=== PATIENT | female | born 1950 | race Two or more races ===

== ENCOUNTER 2024-03-24 17:57 | Emergency (ER) | payer MEDICAID, OTHER ==
[~2024-03-24] VITALS: Ht 152.4 cm; Wt 60.3 kg
[~2024-03-24 17:57] MED LIST: LEVO500T91 PO; PROM1SOL4 PO
[2024-03-24 18:42] VITALS: BP 133/57; PULSE 72; RESP 20; TEMP 98.3; O2SAT 100
--- NOTE | 2024-03-24 18:50 | ED.PDOC ---
Eye-HPI HPI Comments THIS IS A 73-YEAR-OLD FEMALE CHIEF COMPLAINT COLD-LIKE SYMPTOMS X4 DAYS. COMPLAINING OF THICK YELLOW PHLEGM WITH COUGH, NASAL CONGESTION, AND SUBJECTIVE FEVERS. REPORTS NO RECENT ILL CONTACTS OR TRAVEL. SHE DENIES CHEST PAIN, DIFFICULTY BREATHING, OR SHORTNESS OF BREATH NOTES NO NAUSEA VOMITING OR DIARRHEA Chief Complaint: Flu like Time Seen by MD: 18:33 Reviewed Notes: Nurses Notes, Medications, Allergies Allergies: Coded Allergies: NO KNOWN ALLERGIES (Unverified , 05/01/23) Home Meds Active Scripts Methylprednisolone (Medrol Dosepak) 4 Mg Mc, 4 MG PO UD for 6 Days, #21 TAB UAD Prov:JEANETTE LAMBERTP 03/24/24 Azithromycin (Azithromycin) 250 Mg Tab, 250 MG PO DAILY MDD 500 for 5 Days, #6 TAB 0 Refills 2 TABLETS ORALLY ON DAY ONE, THEN 1 TABLET ORALLY DAILY FOR 4 DAYS Prov:JEANETTE LAMBERT 03/24/24 Promethazine-Dm (Promethazine Dm 6.25-15 mg/5Ml) 1 Elizabeth Elizabeth, 5 ML PO TID, #160 ML Prov:ZORAIDA GAMBLE 05/01/23 Levofloxacin Hemihydrate (LEVAQUIN 500 MG) 500 Mg Tab, 1 TAB PO DAILY, #10 TAB Prov:ZORAIDA GAMBLE 05/01/23 Information Source: Patient Mode of Arrival: Ambulatory Past Medical History PAST MEDICAL HISTORY: HTN, Thyroid Surgical History: Denies all surgeries FIRST AID OFFICER History: Denies all FIRST AID OFFICER Hx Family History Family History: Reviewed,noncontributory to illness Social History Smoker: Non-Smoker Alcohol: Denies ETOH Use Drugs: Denies Drug Use Lives In: Home Constitutional: reports: fever; denies: chills, diaphoresis, fatigue, malaise, sweats, weakness, others EENTM: reports: nasal discharge; denies: blurred vision, double vision, ear bleeding, ear discharge, ear drainage, ear pain, ear ringing, eye pain, eye redness, hearing loss, mouth pain, mouth swelling, nose bleeding, nose congestion, nose pain, photophobia, tearing, throat pain, throat swelling, voice changes, others Respiratory: reports: cough; denies: hemoptysis, orthopnea, SOB at rest, shortness of breath, SOB with excertion, stridor, wheezing, others Cardiovascular: denies: chest pain, dizzy spells, diaphoresis, Dyspnea on exertion, edema, irregular heart beat, left arm pain, lightheadedness, palpitations, PND, syncope, others Gastrointestinal: denies: abdomen distended, abdominal pain, blood streaked bowels, constipated, diarrhea, dysphagia, difficulty swallowing, hematemesis, m darek, nausea, poor appetite, poor fluid intake, rectal bleeding, rectal pain, vomiting, others Genitourinary: denies: abnormal vagina bleeding, burning, dyspareunia, dysuria, flank pain, frequency, hematuria, incontinence, pain, , vagina discharge, urgency, others Neurological: denies: dizziness, fainting, headache, left sided numbness, left sided weakness, numbness, paresthesia, pre-existing deficit, right sided numbness, right sided weakness, seizure, speech problems, tingling, tremors, weakness, others Musculoskeletal: denies: back pain, gout, joint pain, joint swelling, muscle pain, muscle stiffness, neck pain, others Integumetry: denies: bruises, change in color, change in hair/nails, dryness, laceration, lesions, lumps, rash, wounds, others Allergic/Immunocompromised: denies: Difficulty Healing, Frequent Infections, Hives, Itching, others Hematologic/Lymphatic: denies: anemia, blood clots, easy bleeding, easy bruising, swollen glands, others Endocrine: denies: excessive hunger, excessive sweating, excessive thirst, excessive urination, flushing, intolerance to cold, intolerance to heat, unexpla ined weight gain, unexplained weight loss, others Psychiatric: denies: anxiety, bipolar disorder, depression, hopeless, panic disorder, schizophrenia, sleepless, suicidal, others Physical Exam General Appearance: No Apparent Distress, Normal HEENT: Normal ENT Inspection, Pharynx Normal, TMs Normal Neck: Full Range of Motion, Non-Tender Respiratory: Lungs Clear, No Respiratory Distress, Normal Breath Sounds Cardiovascular: No Edema, No JVD, No Murmur, No Gallop, Normal Peripheral Pulses, Regular Rate/Rhythm Breast Exam: Deferred Gastrointestinal: No Organomegaly, Non Tender, No Pulsatile Mass, Normal Bowel Sounds, Soft Genitalia: Deferred Pelvic: Deferred Rectal: Deferred Extremities: Normal capillary refill, Normal inspection, Normal range of motion, Non-tender, No pedal edema Musculoskeletal : Apperance: Normal Neurologic: Alert, chemical checker II-XII nml as Tested, No Motor Deficits, Normal Affect, Normal Mood, No Sensory Deficits Cerebellar Function: Normal Reflexes: Normal Skin: Dry, Normal Color, Warm Lymphatic: No Adenopathy Was a procedure done? Was a procedure done?: No EENT DIFF Eye: N/A Ear: Sinusitis Sore Throat: URI X-Ray, Labs, Meds, VS Vital Signs Date Time Temp Pulse Resp B/P (MAP) Pulse Ox O2 Delivery O2 Flow Rate FiO2 03/24/24 18:42 72 20 100 Room Air 03/24/24 18:42 98.3 72 20 133/57 (82) 100 98.3 03/24/24 18:27 98.3 72 20 133/57 (82) 100 Lab Test 03/24/24 18:51 03/24/24 18:24 Range/Units Influenza Type A Antigen Negative Negative Influenza Type B Antigen Negative Negative SARS-CoV-2 Antigen (Rapid) Negative NEGATIVE POC Glucose 104 70-106 mg/dl X-Ray, Labs, Meds, VS Comment INFLUENZA A AND B AND COVID-19 NEGATIVE. CHEST X-RAY SHOWS NO CARDIOPULMONARY ACUTE FINDINGS. SCRIBE AND HOLD AZITHROMYCIN AND MEDROL DOSEPAK. ADVISED PATIENT'S IF SYMPTOMS PERSIST FEVERS START TREATMENT PLAN.. ADVISED TO REST INCREASE P.O. FLUIDS WITH ELECTROLYTES FOLLOW UP WITH YOUR PCP IN 2-3 DAYS NECESSARY ER RETURN PRECAUTIONS GIVEN PATIENT INDICATES UNDERSTANDING AGREES WITH DISCHARGE PLAN OF CARE. Time of 1ST Reevaluation: 20:08 Reevaluation 1ST: Improved Patient Education/Counseling: Diagnosis, Treatment, Prognosis, Need For Follow Up Family Education/Counseling: No Family Present Departure 1 Departure Time of Disposition: 20:08 Impression: Primary Impression: Upper respiratory infection Qualified Codes: J06.9 - Acute upper respiratory infection, unspecified Disposition: HOME / SELF CARE / HOMELESS Condition: Stable e-Prescriptions Methylprednisolone (Medrol Dosepak) 4 Mg Mc 4 MG PO UD for 6 Days, #21 TAB UAD Prov: JEANETTE LAMBERT 03/24/24 Azithromycin (Azithromycin) 250 Mg Tab 250 MG PO DAILY MDD 500 for 5 Days, #6 TAB 0 Refills 2 TABLETS ORALLY ON DAY ONE, THEN 1 TABLET ORALLY DAILY FOR 4 DAYS Prov: JEANETTE LAMBERT 03/24/24 Discharged With: Self Critical Care Note Critical Care Time?: No Stability Stability form required: No JEANETTE LAMBERT Mar 24, 2024 18:50
--- NOTE | 2024-03-24 19:38 | DVH ---
XY CHEST TWO VIEWS ROUTINE CLINICAL HISTORY: DIZZINESS/SOB COMPARISON: XY CHEST TWO VIEWS ROUTINE on DOS: 05/01/23 TECHNIQUE: Frontal and lateral view of the chest was obtained FINDINGS: Lines and Tubes: None Lungs: No focal consolidation. Pleura: No effusion. No pneumothorax. Cardiomediastinal contours: Unremarkable Bones: No acute osseous abnormality. IMPRESSION: 1. No acute cardiopulmonary disease.
[2024-03-24 19:56] LABS: COVID19 ANTIGEN SOFIA FIA NEGATIVE (NEGATIVE); Rapid Influenza A Negative (Negative); Rapid Influenza B Negative (Negative)
[2024-03-24] MEDS ORDERED: AZIT-43 PO (20:15)
[2024-03-24] MEDS ORDERED: METH4PAK PO (20:15)
== END 2024-03-24 20:32 | disposition home or self-care (01) ==
LOC: ER 17:57
DX: J06.9 Acute upper respiratory infection, unspecified (principal); I10 Essential (primary) hypertension; E07.9 Disorder of thyroid, unspecified; R05.9 Cough, unspecified; R09.81 Nasal congestion; R50.9 Fever, unspecified; Z20.822 Contact with and (suspected) exposure to COVID-19
CPT/HCPCS: 36415; 71046; 82962; 87426; 87804

== ENCOUNTER 2024-08-14 12:32 | Emergency (ER) | payer MEDICAID ==
[~2024-08-14] VITALS: Ht 152.4 cm; Wt 57.7 kg
[~2024-08-14 12:32] MED LIST changes: +AZIT-43 PO
[2024-08-14 12:42] VITALS: TEMP 98.6
--- NOTE | 2024-08-14 13:17 | DVH ---
CHEST RADIOGRAPH Indication: cough, sob, cp, dizzy Technique: Single frontal view of the chest was obtained COMPARISON: None FINDINGS: Lines and Tubes: None Lungs: Clear Pleura: No effusion. No pneumothorax. Cardiomediastinal contours: Unremarkable Bones: Unremarkable IMPRESSION: No acute disease.
[2024-08-14 13:23] LABS: Basophils # (auto) 0.1 10 ^3/uL (0-0.2); Basophils % (auto) 1.1 % (0.0-2.0); Eosinophils # (auto) 0.1 10 ^3/uL (0-0.8); Eosinophils % (auto) 1.3 % (0.0-7.0); Hemoglobin 12.7 g/dL (12.2-16.2); Lymphocytes # (auto) 2.6 10 ^3/uL (0.4-5.4); Lymphocytes % (auto) 44.1 % (10.0-50.0); Mean Corpuscular Hemoglobin 31.9 pg (28.0-32.0); Mean Corpuscular Hgb Conc. 35.4 g/dL (32.0-36.0); Mean Corpuscular Volume 90.1 fL (80.0-100.0); Monocytes # (auto) 0.4 10 ^3/uL (0-1.3); Monocytes % (auto) 6.5 % (0.0-12.0); Neutrophils # (auto) 2.8 10 ^3/uL (1.6-8.6); Platelet Count (auto) 201 10^3/uL (140-450); Red Cell Distribution Width 15.9 % (11.8-14.3); White Blood Cell 5.9 10^3/uL (4.4-10.8)
--- NOTE | 2024-08-14 13:32 | ED.PDOC ---
SOB-HPI HPI Comments HPI: 73y f who presents to the ED for chief complaint of shortness of breath. - pt states she has been having shortness of breath for the past 2 days - pt states she has been having associated chest pain, dizziness and cough with phlegm - pt states the chest pain is abdominal pain radiating up to chest, burning in nature, with no associated exacerbating or relieving factors - pt states she was dx with gastritis and was prescribed PPI meds and states she was taking her medications and she finished her course 3 days prior - pt otherwise denies any recent sick contacts -pt is ax0x4 and denies any other symptoms at this time -pt has history of HTN and states she took her HTN meds today - pt in the ED, has noted BP 97/46 with all other vitals in normal range - Past Medical history: HTN, DM, thyroid, vertigo Past Surgical history: denies Medications: nifedpine, levothyroxine, meclizine Allergies: nkda Social History: denies ETOH, denies tobacco use, denies drug use HPI: Poor Historian. REVIEW OF SYSTEMS: CONSTITUTIONAL: Denies acute: fever, diaphoresis, chills, generalized weakness. HEAD: Denies acute: headache, photophobia Eyes: Denies acute: Double vision, vision loss, eye pain, eye discharge. EARS: Denies acute: tinnitus, hearing loss, ear discharge, ear pain, THROAT: Denies acute: sore throat, swelling, difficulty swallowing , pain with swallowing, change in voice. NECK: Denies acute: neck pain, neck swelling, stiff neck. HEART: Denies acute : palpitations, LUNGS: Denies acute: wheezing, hemoptysis ABDOMEN: Denies acute: abdominal pain, Nausea, Vomiting, diarrhea, melena , hematemesis, hematochezia SKIN: Denies acute: rash, redness, lesions, itchiness. EXTREMITIES: Denies acute: calf pain, numbness, tingling, weakness, denies pain in extremity. Denies acute: Low back pain. Neuro: Denies acute: focal neurological deficit, motor or sensory focal neurological deficit, tremors, seizure like activity, confusion, dizziness, change in mental status, loss of bowel or bladder function, cauda equina like symptoms. : Denies acute: dysuria, hematuria, flank pain, increase in urinary frequency. PSYCH: Denies acute: hallucination, suicidal ideation, homicidal ideation. FEMALE: Denies acute: abnormal vaginal bleeding, foul odor, unusual discharge. PHYSICAL EXAM: General: ----no----acute distress, awake and alert. Head: normocephalic, atraumatic. Neck: supple, trachea is midline, no swelling. Throat: Normal phonation. Eyes:, no erythema, no purulent discharge, no proptosis, no icterus. Heart: regular rate, regular rhythm, no significant murmur appreciated. Lungs: no apparent respiratory distress, Able to speak in full sentences. No wheezing, no rhonchi, no crackles. No stridors Clear to auscultation bilaterally. Abdomen: non tender to palpation, non distended, soft, no guarding, no rebound, + bowel sounds. Neuro: Awake, Alert, oriented to name, self, situation, follows commands GCS=15. Speech is normal. Skin: no petechia, no purpura, no cyanosis, non-pale, not jaundice. Lower extremities: --no - Pitting edema no deformity, no focal swelling, no calf TTP. Makes eye contact. moves all four extremities. Face: no apparent facial droop. Ambulating in the ED independently. ED COURSE: DISCLAIMER: This medical document was created using an electronic medical record system with voice recognition software and computerized dictation system. Although this document has been carefully reviewed, there might still be some phonetic and typographical errors. Occasional wrong-word or "sound-alike" substitutions may have occurred due to the inherent limitations of voice recognition software. These areas are purely typographical due to imperfections of the software programs and do not reflect any compromise in the patient's medical care. Please read the chart carefully and recognize, using context, where these substitutions have occurred. Chief Complaint: General Weakness Time Seen by MD: 13:31 Primary Care Provider: KODAK Reviewed notes: Medications, Allergies Information Source: Patient Mode of Arrival: Ambulatory Past Medical History PAST MEDICAL HISTORY: HTN, Thyroid Surgical History: Denies all surgeries MARINE ENGINE DRIVER History: Denies all MARINE ENGINE DRIVER Hx Family History Family History: Reviewed,noncontributory to illness Social History Smoker: Non-Smoker Alcohol: Denies ETOH Use Drugs: Denies Drug Use Lives In: Home Was a procedure done? Was a procedure done?: No Differential Dx Differential Diagnosis: Other (DDx include ACS, unstable angina, anxiety, PE, pneumothroax, neoplasm, cardiac ischemia, COPD, asthma, CHF, pleural effusion, tobacco abuse, pneumonia, hypoxia, hypercapnia, anemia., infection/sepsis., pulmonary edema. Asthma, Cardiac tamponade, infection.) X-Ray, Labs, Meds, VS Vital Signs Date Time Temp Pulse Resp B/P (MAP) Pulse Ox O2 Delivery O2 Flow Rate FiO2 08/14/24 17:43 68 18 98 Room Air 08/14/24 17:43 70 18 145/62 (89) 98 08/14/24 12:50 74 08/14/24 12:42 98.6 81 17 97/46 (63) 96 98.6 Lab Test 08/14/24 13:55 08/14/24 13:30 08/14/24 12:56 08/14/24 12:48 Range/Units Troponin I High Sensitivity 12 13 </=34 ng/L Influenza Type A Antigen Negative Negative Influenza Type B Antigen Negative Negative SARS-CoV-2 Antigen (Rapid) Negative NEGATIVE White Blood Count 5.9 4.4-10.8 10^3/uL Red Blood Count 4.00 4.0-5.20 10^6/uL Hemoglobin 12.7 12.2-16.2 g/dL Hematocrit 36.0 36.0-46.0 % Mean Corpuscular Volume 90.1 80.0-100.0 fL Mean Corpuscular Hemoglobin 31.9 28.0-32.0 pg Mean Corpuscular Hemoglobin Concent 35.4 32.0-36.0 g/dL Red Cell Distribution Width 15.9 H 11.8-14.3 % Platelet Count 201 140-450 10^3/uL Mean Platelet Volume 8.2 6.9-10.8 fL Neutrophils (%) (Auto) 47.0 37.0-80.0 % Lymphocytes (%) (Auto) 44.1 10.0-50.0 % Monocytes (%) (Auto) 6.5 0.0-12.0 % Eosinophils (%) (Auto) 1.3 0.0-7.0 % Basophils (%) (Auto) 1.1 0.0-2.0 % Neutrophils # (Auto) 2.8 1.6-8.6 10 ^3/uL Lymphocytes # (Auto) 2.6 0.4-5.4 10 ^3/uL Monocytes # (Auto) 0.4 0-1.3 10 ^3/uL Eosinophils # (Auto) 0.1 0-0.8 10 ^3/uL Basophils # (Auto) 0.1 0-0.2 10 ^3/uL Nucleated Red Blood Cells 0.0 % Sodium Level 145 136-145 mmol/L Potassium Level 3.8 3.5-5.1 mmol/L Chloride Level 109 H 98-107 mmol/L Carbon Dioxide Level 24 20-31 mmol/L Anion Gap 12 5-15 Blood Urea Nitrogen 20 9-23 mg/dL Creatinine 1.47 H 0.550-1.02 mg/dL Glomerular Filtration Rate Calc 38 >90 mL/min BUN/Creatinine Ratio 13.6 10.0-20.0 Serum Glucose 131 H 74-106 mg/dL Lactic Acid Level 1.5 0.4-2.0 mmol/L Calcium Level 10.0 8.7-10.4 mg/dL Total Bilirubin 1.1 H 0.2-1.0 mg/dL Aspartate Amino Transferase (AST) 55 H <34 U/L Alanine Aminotransferase (ALT) 30 7-40 U/L Alkaline Phosphatase 236 H 46-116 U/L B-Type Natriuretic Peptide 205.33 0-100 pg/mL Total Protein 7.4 5.7-8.2 g/dL Albumin 4.2 3.2-4.8 g/dL Urine Color Yellow Yellow Urine Clarity Clear Clear Urine pH 5.5 5.0-9.0 Urine Specific [place] 1.023 1.001-1.035 Urine Protein Trace H Negative Urine Ketones Negative Negative Urine Blood Trace H Negative /uL Urine Nitrite Negative Negative Urine Bilirubin Negative Negative Urine Urobilinogen 2 H Negative mg/dL Urine Leukocyte Esterase 1+ Negative /uL Urine RBC 2 0 - 4 /hpf Urine Microscopic WBC 5 0-5 /HPF Urine Squamous Epithelial Cells Few <5 /hpf Urine Bacteria None seen None Seen /hpf Urine Hyaline Casts Few 0 - 2 /lpf Urine Mucus Few None Seen Urine Glucose Normal Normal mg/dL [facility] [address] [facility] [id number] Ph: [phone] DIAGNOSTIC IMAGING Diagnostic Imaging Report : [id number] Signed PATIENT: HAROLDO DEMARCO ACCT: [id number] UNIT: [id number] : 1950 LOC: ER ROOM / BED: / AGE / SEX: 73 / F ADM STATUS: REG ER SERVICE [id number] ORDERING PHYSICIAN: ALEXANDRO BUI DO PROCEDURE(s): CXRP - CHEST PORTABLE REASON: cough, sob, cp, dizzy ORDER NUMBER(s): [id number], ACCESSION NUMBER(s): [id number] CHEST RADIOGRAPH Indication: cough, sob, cp, dizzy Technique: Single frontal view of the chest was obtained COMPARISON: None FINDINGS: Lines and Tubes: None Lungs: Clear Pleura: No effusion. No pneumothorax. Cardiomediastinal contours: Unremarkable Bones: Unremarkable IMPRESSION: No acute disease. ATED BY: KAREEM BLAKE MD DICTATED DATE/TIME: 08/14/241314 SIGNED BY: KAREEM BLAKE MD SIGNED DATE/TIME: 08/14/241314 CC: Time of 1ST Reevaluation: 00:00 Reevaluation 1ST: Patient Education/Counseling: Diagnosis, Treatment Family Education/Counseling: No Family Present Comments Patient presented with the above HPI.----respiratory complaints--workup was initiated. patient was found with the above mentioned diagnosis. the following medications were ordered: please refer to order lists of meds and tests obtained by myself Dr. Bui. Patient ED course and VS have been stabilized. Patient has been reassessed in the ED and remained in a stable condition. Pertinent incidental findings were discussed with the patient and/or family. Patient/family voices understanding and is agreeable with plan. Patient has been observed in the ED adequate length of time to insure improvement/stability. Escalation of care considered: Consideration of escalation to observation or admission Patient was DISCHARGED home in a stable condition. All the reports of any imaging studies that were ordered by myself were reviewed by myself. Departure 1 Departure Time of Disposition: 16:58 Impression: Primary Impression: Acute bronchitis Disposition: 01 HOME / SELF CARE / HOMELESS Condition: Stable Additional Instructions: Additional instructions: You MUST follow-up with your primary care/family doctor in 1 to 2 days. If you are unable to see your primary care/family doctor, please return to our emergency room for re-assessment and re-evaluation in 1 to 2 days. Return to the emergency room here in our facility or to the nearest ER [facility] if your symptoms change or worsen. CONSULTATIONS: you MUST Follow-up for consultation as soon as possible with: cardiology and pulmonology in 1-2 days. Please call for appointment. You MUST call the consultants office yourself to make an appointment. You may need to arrange that through your insurance and/or your primary/family doctor. If you are unable to see the retail client solutions consultant in 1 to 2 days, you must return to our emergency room (or any other ER of your choice) for re-assessment and re- evaluation. Adequate fluid hydration. Below is a copy of your radiological report for follow up: e-Prescriptions Azithromycin (Azithromycin) 500 Mg Tab 1 TAB PO DAILY for 6 Days, #6 TAB Prov: ALEXANDRO BUI DO 08/14/24 Discharged With: Self Critical Care Note Critical Care Time?: No Heart Score Heart Score: Heart Score Response (Comments) Value History Slightly Suspicious 0 EKG Normal 0 Age >65 2 Risk Factors 1 or 2 risk factors 1 Troponin Normal limit 0 Total 3 I personally scribed for ALEXANDRO BUI DO ([email or web address]) on 08/14/24 at 13:32. Electronically submitted by Alva Rojas ([email or web address]). I personally scribed for ALEXANDRO BUI DO ([email or web address]) on 08/14/24 at 16:14. Electronically submitted by Alva Rojas ([email or web address]). I personally scribed for ALEXANDRO BUI DO ([email or web address]) on 08/14/24 at 19:19. Electronically submitted by Alva Rojas ([email or web address]). ALEXANDRO BUI DO Aug 14, 2024 13:32
[2024-08-14 13:33] LABS: Alanine Aminotransferase 30 U/L (7-40); Albumin 4.2 g/dL (3.2-4.8); Alkaline Phosphatase 236 U/L (46-116); Anion Gap 12 (5-15); Aspartate Aminotransferase 55 U/L (<34); BUN/Creatinine Ratio 13.6 (10.0-20.0); Bilirubin, Total 1.1 mg/dL (0.2-1.0); Blood Urea Nitrogen 20 mg/dL (9-23); Carbon Dioxide 24 mmol/L (20-31); Chloride 109 mmol/L (98-107); Glucose 131 mg/dL (74-106); Potassium 3.8 mmol/L (3.5-5.1); Sodium 145 mmol/L (136-145); Total Protein 7.4 g/dL (5.7-8.2)
[2024-08-14 15:24] LABS: Rapid Influenza A Negative (Negative); Rapid Influenza B Negative (Negative)
[2024-08-14 15:25] LABS: COVID19 ANTIGEN SOFIA FIA NEGATIVE (NEGATIVE)
[2024-08-14 16:14] LABS: Urine Bacteria None Seen /hpf (None Seen)
[2024-08-14 16:26] LABS: Urine Blood TRACE /uL (Negative); Urine Clarity Clear (Clear); Urine Color Yellow (Yellow); Urine Hyaline Cast FEW /lpf (0 - 2); Urine Mucus FEW (None Seen); Urine Protein, UAD TRACE (Negative); Urine Specific Gravity 1.023 (1.001-1.035); Urine Squamous Epithelial Cell FEW /hpf (<5); Urine Urobilinogen 2 mg/dL (Negative); Urine WBC 5 /HPF (0-5); Urine pH 5.5 (5.0-9.0)
[2024-08-14] MEDS ORDERED: AZIT500T66 PO (16:59)
[2024-08-14 17:43] VITALS: BP 145/62; PULSE 68; RESP 18; O2SAT 98
--- NOTE | 2024-08-15 06:48 | ECG ---
[facility] Test Date: 2024-08-14 Test Time: 12:50:56 Pat Name: HAROLDO DEMARCO Department: ER Room: Gender: F Retail Sales Representative: SO : 1950 Requested By: ALEXANDRO BUI Order Number: [id number] Reading MD: Blaine Wallace Measurements Intervals Porter Rate: 74 P: 13 NE: 122 QRS: 72 QRSD: 80 T: -5 QT: 347 QTc: 385 Interpretive Statements Sinus rhythm Borderline T abnormalities, inferior leads Electronically Signed On 08-15-2024 17:40:10 PDT by Blaine Wallace Please click the below link to view image of tracing.
== END 2024-08-14 17:46 | disposition home or self-care (01) ==
LOC: ER 12:32
DX: J20.9 Acute bronchitis, unspecified (principal); I10 Essential (primary) hypertension; E11.9 Type 2 diabetes mellitus without complications; Z20.822 Contact with and (suspected) exposure to COVID-19
CPT/HCPCS: 36415; 71045; 80053; 81001; 83605; 83880; 84484; 85025; 87426; 87804; 93005

== ENCOUNTER 2024-08-23 12:38 | Inpatient (IN) | payer MEDICAID ==
[~2024-08-23] VITALS: Ht 157.5 cm; Wt 63.4 kg
[2024-08-23] MEDS: SODIUM CHLORIDE 0.9% 1,000 ML IV SCH (01:19)
[~2024-08-23 12:38] MED LIST changes: +AZIT500T66 PO
--- NOTE | 2024-08-23 13:24 | ED.PDOC ---
HPI (NEURO) HPI Comments 73 y/o F, with PMHx of HTN presents to the ED for CC of generalized weakness. Patient states, she has been experiencing generalized weakness with associated symptoms of dizziness, nasal congestion and chest pain x 1week. Patient reports, dizziness has caused her to be unable to ambulate. Patient denies sore-throat, fever, chills, body-aches, dysuria, back pain, or flank pain. No other symptoms or modifying factors present at this time. Chief Complaint: General Weakness Time Seen by MD: 13:19 Primary Care Provider: KODAK Tolentino Notes: Nurses Notes, Medications, Allergies Information Source: Patient, Relative (Child) Mode of Arrival: Ambulatory Severity: Moderate Dizziness/Weakness Severity: Unable to do activities Headache Severity: None Timing: Weeks Duration: Since onset Prehospital treatment: None Weakness Location: Generalized Onset: At rest Circumstances: Spontaneous Symptoms: Weakness Modifying factors: Nothing Associated Signs and Symptoms: None Past Medical History PAST MEDICAL HISTORY: HTN, Thyroid Surgical History: Denies all surgeries COMMUNITY RELATIONS DIRECTOR History: Denies all COMMUNITY RELATIONS DIRECTOR Hx Family History Family History: Reviewed,noncontributory to illness Social History Smoker: Non-Smoker Alcohol: Denies ETOH Use Drugs: Denies Drug Use Lives In: Home Constitutional: reports: weakness; denies: chills, diaphoresis, fatigue, fever, malaise, sweats, others EENTM: reports: nose congestion; denies: blurred vision, double vision, ear bleeding, ear discharge, ear drainage, ear pain, ear ringing, eye pain, eye redness, hearing loss, mouth pain, mouth swelling, nasal discharge, nose bleeding, nose pain, photophobia, tearing, throat pain, throat swelling, voice changes, others Respiratory: reports: shortness of breath; denies: cough, hemoptysis, orthopnea, SOB at rest, SOB with excertion, stridor, wheezing, others Cardiovascular: reports: chest pain; denies: dizzy spells, diaphoresis, Dyspnea on exertion, edema, irregular heart beat, left arm pain, lightheadedness, palpitations, PND, syncope, others Gastrointestinal: denies: abdomen distended, abdominal pain, blood streaked bowels, constipated, diarrhea, dysphagia, difficulty swallowing, hematemesis, melena, nausea, poor appetite, poor fluid intake, rectal bleeding, rectal pain, vomiting, others Genitourinary: denies: abnormal vagina bleeding, burning, dyspareunia, dysuria, flank pain, frequency, hematuria, incontinence, pain, , vagina discharge, urgency, others Neurological: reports: dizziness; denies: fainting, headache, left sided numbness, left sided weakness, numbness, paresthesia, pre-existing deficit, right sided numbness, right sided weakness, seizure, speech problems, tingling, tremors, weakness, others Musculoskeletal: denies: back pain, gout, joint pain, joint swelling, muscle pain, muscle stiffness, neck pain, others Integumetry: denies: bruises, change in color, change in hair/nails, dryness, laceration, lesions, lumps, rash, wounds, others Allergic/Immunocompromised: denies: Difficulty Healing, Frequent Infections, Hives, Itching, others Hematologic/Lymphatic: denies: anemia, blood clots, easy bleeding, easy bruising, swollen glands, others Endocrine: denies: excessive hunger, excessive sweating, excessive thirst, excessive urination, flushing, intolerance to cold, intolerance to heat, unexplained weight gain, unexplained weight loss, others Psychiatric: denies: anxiety, bipolar disorder, depression, hopeless, panic disorder, schizophrenia, sleepless, suicidal, others All Other Systems: Reviewed and Negative Physical Exam General Appearance: Moderate Distress HEENT: Normal ENT Inspection, Pharynx Normal, TMs Normal Neck: Full Range of Motion, Non-Tender, Normal, Normal Inspection Respiratory: Chest Non-Tender, Lungs Clear, No Accessory Muscle Use, No Respiratory Distress, Normal Breath Sounds Cardiovascular: No Edema, No JVD, No Murmur, No Gallop, Normal Peripheral Pulses, Regular Rate/Rhythm Breast Exam: Deferred Gastrointestinal: No Organomegaly, Non Tender, No Pulsatile Mass, Normal Bowel Sounds, Soft Genitalia: Deferred Pelvic: Deferred Rectal: Deferred Extremities: No calf tenderness, No pedal edema Musculoskeletal : Apperance: Normal Neurologic: Alert, No Motor Deficits, No Sensory Deficits Cerebellar Function: NOT DONE Reflexes: NOT DONE Skin: Normal Color Peripheral Pulses: 3+ Radial (R), 3+ Radial (L) Lymphatic: No Adenopathy Was a procedure done? Was a procedure done?: No Differential Diagnosis (SZ) Seizure: Psychogenic Seizure, Anticonvulsant Withdrawl, CVA/TIA General Weakness: Dehydration, Electrolyte imbalance, Vertigo: central, Vert igo: peripheral X-Ray, Labs, Meds, VS Vital Signs Date Time Temp Pulse Resp B/P (MAP) Pulse Ox O2 Delivery O2 Flow Rate FiO2 08/23/24 14:51 72 18 98 Room Air 08/23/24 14:51 97.9 72 18 126/51 (76) 98 97.9 08/23/24 13:01 98.8 73 16 97/41 (59) 97 98.8 08/23/24 12:59 74 Lab Test 08/23/24 16:47 08/23/24 13:36 Range/Units Lactic Acid Level 1.4 0.4-2.0 mmol/L White Blood Count 6.1 4.4-10.8 10^3/uL Red Blood Count 4.05 4.0-5.20 10^6/uL Hemoglobin 13.0 12.2-16.2 g/dL Hematocrit 36.7 36.0-46.0 % Mean Corpuscular Volume 90.6 80.0-100.0 fL Mean Corpuscular Hemoglobin 32.0 28.0-32.0 pg Mean Corpuscular Hemoglobin Concent 35.3 32.0-36.0 g/dL Red Cell Distribution Width 16.2 H 11.8-14.3 % Platelet Count 177 140-450 10^3/uL Mean Platelet Volume 8.1 6.9-10.8 fL Neutrophils (%) (Auto) 61.1 37.0-80.0 % Lymphocytes (%) (Auto) 31.1 10.0-50.0 % Monocytes (%) (Auto) 5.9 0.0-12.0 % Eosinophils (%) (Auto) 0.8 0.0-7.0 % Basophils (%) (Auto) 1.1 0.0-2.0 % Neutrophils # (Auto) 3.7 1.6-8.6 10 ^3/uL Lymphocytes # (Auto) 1.9 0.4-5.4 10 ^3/uL Monocytes # (Auto) 0.4 0-1.3 10 ^3/uL Eosinophils # (Auto) 0 0-0.8 10 ^3/uL Basophils # (Auto) 0.1 0-0.2 10 ^3/uL Nucleated Red Blood Cells 0.1 % Sodium Level 142 136-145 mmol/L Potassium Level 3.7 3.5-5.1 mmol/L Chloride Level 105 98-107 mmol/L Carbon Dioxide Level 25 20-31 mmol/L Anion Gap 12 5-15 Blood Urea Nitrogen 16 9-23 mg/dL Creatinine 1.17 H 0.550-1.02 mg/dL Glomerular Filtration Rate Calc 50 >90 mL/min BUN/Creatinine Ratio 13.7 10.0-20.0 Serum Glucose 95 74-106 mg/dL Calcium Level 10.2 8.7-10.4 mg/dL Troponin I High Sensitivity 12 </=34 ng/L [facility] [id number] [place] [address] Ph: [phone] DIAGNOSTIC IMAGING Diagnostic Imaging Report : [id number] Signed PATIENT: HAROLDO DEMARCO ACCT: [id number] UNIT: [id number] : 1950 LOC: ER ROOM / BED: / AGE / SEX: 73 / F ADM STATUS: REG ER SERVICE 1320 ORDERING PHYSICIAN: ARETHA PÉREZ MD PROCEDURE(s): CXRP - CHEST PORTABLE REASON: sob ORDER NUMBER(s): [id number], ACCESSION NUMBER(s): [id number] CHEST RADIOGRAPH Indication: sob Technique: Single frontal view of the chest was obtained Comparison: None FINDINGS: The cardiac silhouette is unremarkable. The lungs demonstrate bilateral patchy airspace opacities. The pulmonary vasculature is prominent. Left pleural calcifications. Small bilateral pleural effusions. There is no pneumothorax. IMPRESSION: As above ATED BY: LUBA WEISS MD DICTATED DATE/TIME: 08/23/241511 SIGNED BY: LUBA WEISS MD SIGNED DATE/TIME: 08/23/24 151 CC: Patient alert pain Complaining of dizziness. She does have multiple complaints. Vitals stable. Answering questions. Blood pressure slightly low. She is afraid of falling if she stands up. Difficulty ambulating. Establish intravenous access. Was given fluids. EKG reviewed does not show any acute changes. Explained to family that she will be admitted for further workup. Continue to monitor. Chest x-ray reviewed does show pneumonia. Was given Rocephin. Was given azithromycin. Time of 1ST Reevaluation: 17:41 Reevaluation 1ST: Unchanged Patient Education/Counseling: Diagnosis, Treatment Family Education/Counseling: Diagnosis, Treatment Departure 1 Departure Time of Disposition: 14:02 Impression: Primary Impression: Hypotension Qualified Codes: I95.9 - Hypotension, unspecified Additional Impressions: Autonomic disorder Pneumonia Qualified Codes: J18.9 - Pneumonia, unspecified organism Disposition: ADMITTED INPATIENT Admit to: Med Surg Condition: Guarded Critical Care Note Critical Care Time?: Yes (90 min-critical care time only) Critical care comment: Blood pressure low continue fluids Stability Stability form required: No Heart Score Heart Score: Heart Score Response (Comments) Value History Slightly Suspicious 0 EKG Normal 0 Age >65 2 Risk Factors >3 or Hx ASHD 2 Troponin Normal limit 0 Total 4 I personally scribed for ARETHA PÉREZ MD ([email or web address]) on 08/23/24 at 13:24. Electronically submitted by Cheryl Boucher ([email or web address]). I personally scribed for ARETHA PÉREZ MD ([email or web address]) on 08/23/24 at 15:17. Electronically submitted by Cheryl Boucher ([email or web address]). ARETHA PÉREZ MD Aug 23, 2024 13:24
--- NOTE | 2024-08-23 13:41 | ECG ---
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
[2024-08-23 13:52] LABS: Basophils # (auto) 0.1 10 ^3/uL (0-0.2); Basophils % (auto) 1.1 % (0.0-2.0); Eosinophils # (auto) 0 10 ^3/uL (0-0.8); Eosinophils % (auto) 0.8 % (0.0-7.0); Hematocrit 36.7 % (36.0-46.0); Lymphocytes # (auto) 1.9 10 ^3/uL (0.4-5.4); Lymphocytes % (auto) 31.1 % (10.0-50.0); Mean Corpuscular Hgb Conc. 35.3 g/dL (32.0-36.0); Mean Corpuscular Volume 90.6 fL (80.0-100.0); Monocytes # (auto) 0.4 10 ^3/uL (0-1.3); Monocytes % (auto) 5.9 % (0.0-12.0); Neutrophils # (auto) 3.7 10 ^3/uL (1.6-8.6); Neutrophils % (auto) 61.1 % (37.0-80.0); Nucleated Red Blood Cells % 0.1 %; Platelet Count (auto) 177 10^3/uL (140-450); Red Blood Cells 4.05 10^6/uL (4.0-5.20); Red Cell Distribution Width 16.2 % (11.8-14.3); White Blood Cell 6.1 10^3/uL (4.4-10.8)
[2024-08-23 13:57] LABS: Chloride 105 mmol/L (98-107); Potassium 3.7 mmol/L (3.5-5.1); Sodium 142 mmol/L (136-145)
[2024-08-23 13:58] LABS: Anion Gap 12 (5-15); Carbon Dioxide 25 mmol/L (20-31)
[2024-08-23 13:59] LABS: Calcium 10.2 mg/dL (8.7-10.4)
[2024-08-23 14:03] LABS: Glucose 95 mg/dL (74-106)
[2024-08-23 14:04] LABS: BUN/Creatinine Ratio 13.7 (10.0-20.0); Blood Urea Nitrogen 16 mg/dL (9-23)
--- NOTE | 2024-08-23 15:14 | DVH ---
CHEST RADIOGRAPH Indication: sob Technique: Single frontal view of the chest was obtained Comparison: None FINDINGS: The cardiac silhouette is unremarkable. The lungs demonstrate bilateral patchy airspace opacities. Th e pulmonary vasculature is prominent. Left pleural calcifications. Small bilateral pleural effusions . There is no pneumothorax. IMPRESSION: As above
[2024-08-23] MEDS: SODIUM CHLORIDE 0.9% 1,000 ML IV ONE ×2 (16:45)
[2024-08-23] MEDS ORDERED: SODIUM CHLORIDE 0.9% 1,000 ML IV ONE (16:45)
[2024-08-23] MEDS: AZITHROMYCIN 500MG/ 250ML 250 ML IV ONE (19:46)
[2024-08-23] MEDS: cefTRIAXone 1GM/50ML D5W 50 ML IV ONE (19:47)
[2024-08-23 20:33] LABS: Urine Bacteria None Seen /hpf (None Seen)
[2024-08-23 20:45] LABS: Urine Blood Negative /uL (Negative); Urine Budding Yeast OCCASIONAL /hpf (None Seen); Urine Clarity Clear (Clear); Urine Color Light-Yellow (Yellow); Urine Protein, UAD Negative (Negative); Urine Specific Gravity 1.011 (1.001-1.035); Urine Squamous Epithelial Cell FEW /hpf (<5); Urine Urobilinogen Normal (Negative); Urine WBC 4 /HPF (0-5); Urine pH 7.5 (5.0-9.0)
[2024-08-23] MEDS ORDERED: MORPHINE SULFATE INJ 2 MG/ml SYRG IV PRN ×2 (21:45)
[2024-08-23] MEDS ORDERED: DOCUSATE SOD 100 MG CAP PO PRN (21:45)
[2024-08-23] MEDS ORDERED: ONDANSETRON HCL 4 MG/2 ML VIAL IV PRN (21:45)
[2024-08-23] MEDS ORDERED: NITROGLYCERIN 0.4 MG SL TAB SL PRN (21:45)
--- NOTE | 2024-08-23 22:56 | DVH ---
EXAM: CT HEAD WITHOUT CONTRAST INDICATION: Rule out stroke. TECHNIQUE: CT of the head without intravenous contrast. Radiation Dose Information: CT Dose: CTDI volume is 51.41 mGy. Dose-length product is 910.49 mGy*cm The dose indicators for CT are the volume Computed Tomography (CT) Dose Index (CTDIvol) and the Dose Length Product (DLP), and are measured in units of mGy and mGy-cm, respectively. These indicators are not patient dose, but values generated from the CT scanner acquisition factors. The report includes radiation exposure data for exposures received during this examination. COMPARISON: None FINDINGS: There is no evidence of acute intracranial hemorrhage, extra-axial collection, mass effect, midline s hift, herniation or hydrocephalus. The ventricles, sulci and cisterns are age appropriate. The brito-white differentiation is intact. Patchy periventricular and subcortical white matter hypoattenuation is nonspecific but may be related to small vessel ischemic disease. The visualized paranasal sinuses and mastoid air cells are clear. The surrounding soft tissues and osseous structures are unremarkable. IMPRESSION: 1. No acute intracranial abnormality.
[2024-08-23 23:24] LABS: Albumin 4.2 g/dL (3.2-4.8); Total Protein 7.6 g/dL (5.7-8.2)
[2024-08-23 23:25] LABS: Bilirubin, Direct 0.4 mg/dL (<0.3)
--- NOTE | 2024-08-23 23:59 | DVHHPRES ---
History of Present Illness Resident Creating Document: CAL KAPLAN RESIDENT History of Present Illness Ms. Lopez, a 73-year-old female with exclusively Tristanian-speaking capability with a history of hypertension, pulmonary nodules, and hypothyroidism presents to the ED with one week of generalized weakness, dizziness, nasal congestion, shortness of breath, and chest pain. The dizziness has been severe enough to impair her ability to ambulate. She denies fever, chills, sore throat, body aches, dysuria, back or flank pain, and has no history of seizures or recent medication changes. She is a non-smoker, denies alcohol and drug use, and lives at home. There are no modifying factors, and symptoms began spontaneously at rest. Differential considerations include dehydration, electrolyte imbalance, and central or peripheral vertigo. the patient was accompanied by the daughter at bedside and came with wheelchair bound as she feels she is at the verge of falling. Past Medical History hypertension, pulmonary nodules, and hypothyroidism Past Surgical History: None Family History: Other (Not contributory to the admission.) Smoke: No ALCOHOL: none Drugs: None Lives: with Family Domestic Violence: Neg Review of Systems Constitutional: Yes: Weakness, Malaise; No: Fever, Chills, Sweats, Other Eyes: No: Pain, Vision change, Conjunctivae inflammation, Eyelid inflammation, Other, Redness ENT: No: Ear pain, Ear discharge, Nose pain, Nose discharge, Nose congestion, Mouth pain, Mouth swelling, Throat pain, Throat swelling, Other Respiratory: No: Cough, Dry, Shortness of breath, SOB with excertion, Wheezing, Hemoptysis, Pleuritic Pain, Sputum, Wheezing, Other Cardiovascular: Chest Pain; No: Palpitations, Orthopnea, Paroxysmal Noc. Dyspnea, Edema, Lt Headedness, Other Gastrointestinal: Nausea, Abdominal Pain; No: Vomiting, Diarrhea, Constipation, Melena, Hematochezia, Other Genitourinary: No Dysuria, No Frequency, No Incontinence, No Hematuria, No Retention, No Other Musculoskeletal: No: other, neck pain, shoulder pain, arm pain, back pain, hand pain, leg pain, foot pain Skin: No: Rash, Lesions, Jaundice, Bruising, Other Neurological: Weakness; No: Numbness, Incoordination, Change in speech, Confusion, Seizures, Other Allergies: Coded Allergies: NO KNOWN ALLERGIES (Unverified , 05/01/23) Medications Current Medications Medications Dose Ordered Sig/Payton Route Start Time Stop Time Status Last Admin Dose Admin Sodium Chloride 1,000 ml @ 60 mls/hr [id number] IV 08/23/24 21:45 Ondansetron HCl 4 mg Q4HP PRN IV 08/23/24 21:45 Docusate Sodium 100 mg BIDPRN PRN PO 08/23/24 21:45 Acetaminophen 650 mg Q6HP PRN PO 08/23/24 21:45 Morphine Sulfate 2 mg Q4HPRN PRN IV 08/23/24 21:45 Nitroglycerin 0.4 mg Q5MINP PRN SL 08/23/24 21:45 Morphine Sulfate 2 mg Q30M PRN IV 08/23/24 21:45 Pantoprazole Sodium 40 mg DAILY IV 08/24/24 10:00 Meclizine HCl 25 mg Q8HPRN PRN PO 08/23/24 22:15 Atorvastatin Calcium 40 mg HS PO 08/24/24 22:00 Levothyroxine Sodium 50 mcg QAM@0600 PO 08/24/24 06:00 Ceftriaxone Sodium 50 ml @ 100 mls/hr DAILY@09 IV 08/24/24 09:00 Exam Vital Signs Vital Signs Date Time Temp Pulse Resp B/P (MAP) Pulse Ox O2 Delivery O2 Flow Rate FiO2 08/23/24 23:49 98.3 66 16 174/70 (104) 97 98.3 08/23/24 14:51 Room Air General Appearance: Alert, Oriented X3, Cooperative, mild distress HEENT: Atraumatic, PERRLA, EOMI, Mucous membr. moist/pink Respiratory: Clear to auscultation, Normal air movement, Other (in RA) Cardiovascular: Regular rate, Normal S1, Normal S2, No murmurs Abdominal: Normal bowel sounds, Soft, No tenderness, No hepatospenomegaly, Other (suprapubic mild tenderness, no cva angle tenderness. ) Extremities: No clubbing, No cyanosis, No edema Skin: No rashes, No breakdown, No significant lesion Neuro: Normal speech, Strength at 5/5 X4 ext, Normal tone, Sensation intact, Cranial nerves 3-12 NL, Reflexes 2+, Other (gait deferred, in the fear of fall. ) Psych/Mental Status: Mental status NL, Mood NL Labs/Xrays Labs Test 08/23/24 23:39 08/23/24 22:30 08/23/24 16:47 08/23/24 13:36 Range/Units D-Dimer, Quantitative 1.19 H 0.0-0.49 mg/L FEU Total Bilirubin 1.0 0.2-1.0 mg/dL Direct Bilirubin 0.4 H <0.3 mg/dL Aspartate Amino Transferase (AST) 49 H <34 U/L Alanine Aminotransferase (ALT) 21 7-40 U/L Alkaline Phosphatase 202 H 46-116 U/L Total Protein 7.6 5.7-8.2 g/dL Albumin 4.2 3.2-4.8 g/dL Lactic Acid Level 1.4 0.4-2.0 mmol/L White Blood Count 6.1 4.4-10.8 10^3/uL Red Blood Count 4.05 4.0-5.20 10^6/uL Hemoglobin 13.0 12.2-16.2 g/dL Hematocrit 36.7 36.0-46.0 % Mean Corpuscular Volume 90.6 80.0-100.0 fL Mean Corpuscular Hemoglobin 32.0 28.0-32.0 pg Mean Corpuscular Hemoglobin Concent 35.3 32.0-36.0 g/dL Red Cell Distribution Width 16.2 H 11.8-14.3 % Platelet Count 177 140-450 10^3/uL Mean Platelet Volume 8.1 6.9-10.8 fL Neutrophils (%) (Auto) 61.1 37.0-80.0 % Lymphocytes (%) (Auto) 31.1 10.0-50.0 % Monocytes (%) (Auto) 5.9 0.0-12.0 % Eosinophils (%) (Auto) 0.8 0.0-7.0 % Basophils (%) (Auto) 1.1 0.0-2.0 % Neutrophils # (Auto) 3.7 1.6-8.6 10 ^3/uL Lymphocytes # (Auto) 1.9 0.4-5.4 10 ^3/uL Monocytes # (Auto) 0.4 0-1.3 10 ^3/uL Eosinophils # (Auto) 0 0-0.8 10 ^3/uL Basophils # (Auto) 0.1 0-0.2 10 ^3/uL Nucleated Red Blood Cells 0.1 % Sodium Level 142 136-145 mmol/L Potassium Level 3.7 3.5-5.1 mmol/L Chloride Level 105 98-107 mmol/L Carbon Dioxide Level 25 20-31 mmol/L Anion Gap 12 5-15 Blood Urea Nitrogen 16 9-23 mg/dL Creatinine 1.17 H 0.550-1.02 mg/dL Glomerular Filtration Rate Calc 50 >90 mL/min BUN/Creatinine Ratio 13.7 10.0-20.0 Serum Glucose 95 74-106 mg/dL Calcium Level 10.2 8.7-10.4 mg/dL B-Type Natriuretic Peptide 260.51 0-100 pg/mL Vitamin B12 Level 581 211-911 pg/mL Vitamin D 25-Hydroxy 31.5 30.0-100 ng/mL Thyroid Stimulating Hormone (TSH) 4.11 0.55-4.78 uIU/mL Test 08/23/24 08:00 Range/Units Urine Color Light-yellow Yellow Urine Clarity Clear Clear Urine pH 7.5 5.0-9.0 Urine Specific [place] 1.011 1.001-1.035 Urine Protein Negative Negative Urine Ketones Negative Negative Urine Blood Negative Negative /uL Urine Nitrite Negative Negative Urine Bilirubin Negative Negative Urine Urobilinogen Normal Negative mg/dL Urine Leukocyte Esterase 1+ Negative /uL Urine RBC 2 0 - 4 /hpf Urine Microscopic WBC 4 0-5 /HPF Urine Squamous Epithelial Cells Few <5 /hpf Urine Bacteria None seen None Seen /hpf Urine Yeast (Budding) Occasional None Seen /hpf Urine Glucose Normal Normal mg/dL Assessment/Plan Assessment/Plan #Recent fall at home x1: Fall precautions, physical examination does not reveal any focal neurological deficit, neurological examination unremarkable, CT head pending. Workup for B12 and TSH. #Abdominal pain: 11/08 radiating to upper chest: Workup to complete with abdominal /pelvis CT with lactate and lipase. Check full hepatic panel. Serial abdominal examination to be done. #Calcified pleural plaques, including corresponding to the finding on chest x- ray. This is compatible with asbestosis exposure noted in CT chest 05/01/2023 Further follow up needed for possible changes/ high-risk of lung cancer. #epigastric pain /chest pain rule out ACS: Serial troponin, EKG, echo to check BNP, we will admit the patient to the telemetry floor for close monitoring. Presumably hemodynamically stable. Atrial premature complex, Abnormal R-wave progression, early transition, Nonspecific repolarization abnormality, diffuse leads, Borderline ST elevation, lateral leads (noted in and EKG almost 10 hours ago)- We will do extensive workup and bedside echo. #Fifth left rib fracture: Noted in the chest x-ray, incentive spirometry, pain control, calcium and vitamin-D supplements. Avoid atelectasis. #Essential hypertension, not well controlled. during this hospital stay blood pressure went to 173/64. Home medications reveal nifedipine 30 mg ER, metoprolol succinate 25 mg #UTI: Leukocyte esterase positive, lactate negative, Hemodynamically stable, afebrile, breathing in comfortably in the room air. status post fluid IV, 1 L bolus NS, 150 cc/hour, #likely LAILA: Creatinine 1.17: Baseline not known avoid, gentle hydration, avoid nephrotoxic meds. #possible underlying CKD stage IIIB : serial monitoring to do. #mild normocytic anemia: Hemoglobin 13.0, RDW 16.2, rule out early GI blood loss, stool occult blood to check Outpatient close follow up with PCP and age- appropriate colonoscopy to follow up. #Likely pulmonary edema: No hypoxia, The lungs demonstrate bilateral patchy airspace opacities. The pulmonary vasculature is prominent. #possible community-acquired pneumonia: Blood culture sputum culture will be sent, check for viral panel, status post IV azithromycin ceftriaxone At ER. #Left pleural calcifications: need outpatient close follow up at least yearly Chest CT scan. #Small bilateral pleural effusions: Check echo, BNP, #Known hypothyroidism, patient on levothyroxine sodium 50 mcg daily we will continue, check TSH. #dyslipidemia : On statin atorvastatin 40 mg daily #intermittent vertigo: Likely underlying BPPV, meclizine 25 mg previously prescribed, patient denies any further symptoms. Associated nausea with promethazine, denies presumably as well. #Worsening generalized weakness: Baseline poor functional status: Patient on wheelchair, accompanied by the daughter, PT evaluation tomorrow. unintentional weight loss, deconditioning, poor nutrition, age-related versus secondary extensive weakness workup pending. #GI prophylaxis: IV ppi to continue PCP: Dr. Guerrero. Specialist Relevant To Admission: Initial workup to be done to rule out for cardiac/abdominal issues, at the time of admission no specialist to be consulted but if needed cardiac/GI/ surgical consult to be done based on findings. Case discussed with Dr. Escobar. Code Status: Full Code. Goals of care and care plan discussion needed total 39 minutes bedside. patient is exclusively Tristanian-speaking, accompanied by daughter, discussion was made with permission from both daughter and patient, they are agreeable to hospital admission and further treatment. Plan discussed with: Patient, Daughter My Orders Orders - CAL KAPLAN RESIDENT Procedure Category Date Status Time Admit ADMIT 08/23/24 Transmitted 21:39 Allergies GUILLAUME 08/23/24 In Process 21:39 Code Status CODE 08/23/24 Transmitted 21:39 Sodium Chloride 0.9% PHA 08/23/24 In Process 21:45 Oxygen Per Hour RT 08/23/24 Transmitted 21:39 Ondansetron Hcl PHA 08/23/24 In Process (Zofran) 21:45 Docusate Sodium PHA 08/23/24 In Process Capsule (Colace 21:45 Fall Risk Precautions GUILLAUME 08/23/[address] 21:39 Complete Blood Count LAB 08/24/24 Verified 04:00 Comprehensive LAB 08/24/24 Verified Metabolic Panel 04:00 Npo (Nothing By DIET 08/24/24 Transmitted Mouth) Diet Breakfast Pt Request For Service PT 08/23/24 Logged 21:39 Echo 2d Mode Cardiac US 08/23/24 Logged DOP 21:39 Condition: Serious GUILLAUME 08/23/24 In Process 21:39 Acetaminophen Tablet PHA 08/23/24 In Process (Tylenol Tablet) 21:45 Bedrest With Bathroom GUILLAUME 08/23/24 In Process Privileg 21:39 Morphine Sulfate PHA 08/23/24 In Process Injection 21:45 Nitroglycerin PHA 08/23/24 In Process Sublingual (Ntrostat 21:45 Morphine Sulfate PHA 08/23/24 In Process Injection 21:45 Oxygen By Nasal RT 08/23/24 Transmitted Cannula 21:39 Stat Ekg For Chest GUILLAUME 08/23/24 In Process Pain 21:39 Notify Md Of Changes GUILLAUME 08/23/24 In Process From Base 21:39 Inventory Auditor For GUILLAUME 08/23/24 In Process 24 Hours 21:39 Emergency Dysrhythmia GUILLAUME 08/23/24 In Process Protocol 21:39 Rhythm Strips Once GUILLAUME 08/23/24 In Process Every Shift 21:[address] 6/25/25 Resulted 21:53 Lipase LAB 08/23/24 In Process 21:53 Hepatic Panel LAB 08/23/24 In Process 21:53 Troponin-I Hs LAB 08/23/24 In Process 21:53 Troponin-I Hs LAB 08/24/24 Verified 00:53 Carotid Duplx W Color US 08/23/24 Taken DOP 21:53 Orthostatic Vital ORDERS 08/23/24 Transmitted Signs 21:53 Communication Order ORDERS 08/23/24 Transmitted 21:53 Incentive Spirometry ORDERS 08/23/24 Transmitted Q 1hr 21:53 Covid19 Antigen Maria Guadalupe LAB 08/23/24 Logged Pantoprazole PHA 08/24/24 In Process (Protonix) 10:00 Meclizine Tablet PHA 08/23/24 In Process (Antivert Tablet) 22:15 Lipid Panel LAB 08/24/24 Verified 04:00 Hemoglobin A1c LAB 08/24/24 Verified 04:00 Atorvastatin (Lipitor) PHA 08/24/24 In Process 22:00 Levothyroxine Tablet PHA 08/24/24 In Process (Synthroid Tablet) 06:00 Respiratory Culture KARLOS 08/23/24 Logged W/ Gs 22:09 Stool Occult Blood LAB 08/23/24 Logged 22:09 Rapid Influenza A&B LAB 08/23/24 Logged 22:21 Urine Bacterial KARLOS 08/23/24 In Process Culture 22:22 Ceftriaxone 1gm/50ml PHA 08/24/24 In Process D5w (Rocephin) 09:00 Date of Service: Aug 23, 2024 Billing Provider: SUMMER ESCOBAR MD Common Visit Codes: [id number] INP/OBS CARE (HIGH) Secondary Visit Codes: [id number] CARE PLAN 30 MINUTES CAL KAPLAN RESIDENT Aug 23, 2024 23:59
[2024-08-24] VITALS (8 sets, daily range): BP systolic 117–160; BP diastolic 50–62; PULSE 65–77; RESP 11–18; TEMP 98.1; O2SAT 95–98
--- NOTE | 2024-08-24 00:42 | DVH ---
Bilateral lower extremity venous duplex Clinical History: leg weakness, fall prone, low mobility high risk of DVT Comparison: None Technique: Duplex Doppler evaluation of the deep venous systems of both lower extremities from the common femora l veins to the popliteal veins including color Doppler and spectral/pulsed waveform analysis was perf ormed. Findings: RIGHT SIDE: The common femoral vein demonstrates appropriate compressibility and waveform variability. There is compressibility/patency of the great saphenous vein at the proximal thigh. The femoral vein demonstrates appropriate compressibility and waveform variability. The deep femoral vein demonstrates appropriate compressibility and waveform variability. The popliteal vein demonstrates appropriate compressibility and waveform variability. There is normal compressibility at the tibioperoneal trunk. LEFT SIDE: The common femoral vein demonstrates appropriate compressibility and waveform variability. There is compressibility/patency of the great saphenous vein at the proximal thigh. The femoral vein demonstrates appropriate compressibility and waveform variability. The deep femoral vein demonstrates appropriate compressibility and waveform variability. The popliteal vein demonstrates appropriate compressibility and waveform variability. There is normal compressibility at the tibioperoneal trunk. Impression: 1. No right or left femoropopliteal venous thrombosis.
[2024-08-24] MEDS: NIFEdipine ER 30 MG TAB PO ONE (01:18)
[2024-08-24] MEDS: PANTOPRAZOLE 40 MG/10 ML VIAL INJ IV ONE (01:19)
[2024-08-24] MEDS: ATORVASTATIN 20 MG TAB PO ONE (01:19)
--- NOTE | 2024-08-24 01:47 | DVH ---
Carotid Doppler Examination CLINICAL HISTORY: recurrent dizziness TECHNIQUE: Real-time high resolution grayscale imaging and color Doppler flow imaging with pulsed du plex sonography of the carotid and vertebral arteries is performed. Velocity criteria are extrapolated from angiographic diameter data as defined by the Society of [employer] in Ultrasound Consensus Conference (Radiology 2003; 229: 340-346). FINDINGS: There is no significant brito scale stenosis. Arterial waveforms are satisfactory bilaterally. Anteg rade flow in the bilateral vertebral arteries. Peak systolic velocities (cm/s): Right ICA proximal: 75.5 Right ICA mid: 72.9 Right ICA distal: 106.2 Right systolic ICA/CCA ratio: 1.4 Left ICA proximal: 78.6 Left ICA mid: 88.5 Left ICA distal: 106.2 Left systolic ICA/CCA ratio: 1.2 IMPRESSION: No hemodynamically significant stenoses or occlusions identified at this time. Antegrade flow in the bilateral vertebral arteries. HS:Y
[2024-08-24 03:11] LABS: COVID19 ANTIGEN SOFIA FIA NEGATIVE (NEGATIVE); Rapid Influenza A Negative (Negative); Rapid Influenza B Negative (Negative)
[2024-08-24 05:37] LABS: Basophils # (auto) 0 10 ^3/uL (0-0.2); Basophils % (auto) 0.8 % (0.0-2.0); Eosinophils # (auto) 0.2 10 ^3/uL (0-0.8); Eosinophils % (auto) 2.8 % (0.0-7.0); Hematocrit 34.1 % (36.0-46.0); Hemoglobin 11.7 g/dL (12.2-16.2); Lymphocytes # (auto) 2.3 10 ^3/uL (0.4-5.4); Lymphocytes % (auto) 37.4 % (10.0-50.0); Mean Corpuscular Hemoglobin 31.7 pg (28.0-32.0); Mean Corpuscular Hgb Conc. 34.3 g/dL (32.0-36.0); Mean Corpuscular Volume 92.4 fL (80.0-100.0); Monocytes # (auto) 0.6 10 ^3/uL (0-1.3); Monocytes % (auto) 9.9 % (0.0-12.0); Neutrophils # (auto) 3.1 10 ^3/uL (1.6-8.6); Neutrophils % (auto) 49.1 % (37.0-80.0); Nucleated Red Blood Cells % 0.1 %; Platelet Count (auto) 137 10^3/uL (140-450); Red Blood Cells 3.69 10^6/uL (4.0-5.20); Red Cell Distribution Width 16.4 % (11.8-14.3); White Blood Cell 6.3 10^3/uL (4.4-10.8)
[2024-08-24 06:01] LABS: Alanine Aminotransferase 14 U/L (7-40); Albumin 3.4 g/dL (3.2-4.8); Anion Gap 11 (5-15); Blood Urea Nitrogen 11 mg/dL (9-23); Calcium 9.1 mg/dL (8.7-10.4); Carbon Dioxide 22 mmol/L (20-31); Cholesterol 134 mg/dL (< 200); Glucose 88 mg/dL (74-106); LDL Cholesterol 85 mg/dL (< 100); Total Protein 6.3 g/dL (5.7-8.2); Triglycerides 77 mg/dL (< 150)
[2024-08-24 06:05] LABS: Alkaline Phosphatase 162 U/L (46-116); Aspartate Aminotransferase 40 U/L (<34); Chloride 112 mmol/L (98-107); HDL Cholesterol 37 mg/dL (40-59); Potassium 3.4 mmol/L (3.5-5.1); Sodium 145 mmol/L (136-145)
[2024-08-24] MEDS: LEVOTHYROXINE SODIUM 50 MCG TAB PO SCH (06:10)
[2024-08-24] MEDS: cefTRIAXone 1GM/50ML D5W 50 ML IV SCH (09:24)
[2024-08-24] MEDS: PANTOPRAZOLE 40 MG/10 ML VIAL INJ IV SCH (10:46)
[2024-08-24] MEDS: NIFEdipine ER 30 MG TAB PO SCH (10:46)
[2024-08-24] MEDS: hydrALAZINE HCL 20 MG/ML VL IV PRN (15:03)
[2024-08-24] MEDS: ACETAMINOPHEN 325 MG TAB PO PRN (15:11)
[2024-08-24] MEDS ORDERED: LEVO50TA7 PO (16:30)
[2024-08-24] MEDS ORDERED: MECL-90 PO (16:30)
[2024-08-24] MEDS ORDERED: NIFE1TAB31 PO (16:30)
[2024-08-24] MEDS: ATORVASTATIN 20 MG TAB PO SCH (22:09)
[2024-08-25] VITALS (9 sets, daily range): BP systolic 107–171; BP diastolic 50–69; PULSE 18–99; RESP 17–20; TEMP 97.8–98.6; O2SAT 96–99
[2024-08-25 09:12] LABS: Basophils # (auto) 0.1 10 ^3/uL (0-0.2); Basophils % (auto) 1.4 % (0.0-2.0); Eosinophils # (auto) 0.1 10 ^3/uL (0-0.8); Eosinophils % (auto) 2.1 % (0.0-7.0); Hematocrit 36.1 % (36.0-46.0); Hemoglobin 12.6 g/dL (12.2-16.2); Lymphocytes # (auto) 2.1 10 ^3/uL (0.4-5.4); Lymphocytes % (auto) 40.8 % (10.0-50.0); Mean Corpuscular Hemoglobin 31.9 pg (28.0-32.0); Mean Corpuscular Volume 91.2 fL (80.0-100.0); Monocytes # (auto) 0.4 10 ^3/uL (0-1.3); Monocytes % (auto) 8.5 % (0.0-12.0); Neutrophils # (auto) 2.4 10 ^3/uL (1.6-8.6); Neutrophils % (auto) 47.2 % (37.0-80.0); Nucleated Red Blood Cells % 0.1 %; Platelet Count (auto) 166 10^3/uL (140-450); Red Blood Cells 3.96 10^6/uL (4.0-5.20); Red Cell Distribution Width 16.5 % (11.8-14.3); White Blood Cell 5.1 10^3/uL (4.4-10.8)
[2024-08-25 09:30] LABS: Alanine Aminotransferase 18 U/L (7-40); Albumin 3.8 g/dL (3.2-4.8); Anion Gap 12 (5-15); BUN/Creatinine Ratio 11.5 (10.0-20.0); Blood Urea Nitrogen 11 mg/dL (9-23); Calcium 10.1 mg/dL (8.7-10.4); Carbon Dioxide 22 mmol/L (20-31); Glucose 91 mg/dL (74-106); Potassium 3.6 mmol/L (3.5-5.1); Sodium 144 mmol/L (136-145); Total Protein 6.9 g/dL (5.7-8.2)
[2024-08-25 09:33] LABS: Alkaline Phosphatase 187 U/L (46-116); Aspartate Aminotransferase 49 U/L (<34); Bilirubin, Total 1.5 mg/dL (0.2-1.0); Chloride 110 mmol/L (98-107)
--- NOTE | 2024-08-25 10:43 | DVHPN2 ---
Reviewed: Care Plan, H&P, Labs Changes from previous H/P or p: No Changes General: Per HPI Eyes: No Pain, No Vision change, No Conjunctivae inflammation, No Eyelid inflammation, No Other, No Redness ENT: No Ear pain, No Ear discharge, No Nose pain, No Nose discharge, No Nose congestion, No Mouth pain, No Mouth swelling, No Throat pain, No Throat swelling, No Other Cardiovascular: Chest Pain; No Palpitations, No Orthopnea, No Paroxysmal Noc. Dyspnea, No Edema, No Lt Headedness, No Other Respiratory: No Cough, No Dry, No Shortness of breath, No SOB with excertion, No Wheezing, No Hemoptysis, No Pleuritic Pain, No Sputum, No Other Gastrointestinal: Nausea; No Vomiting; Abdominal Pain; No Diarrhea, No Constipation, No Melena, No Hematochezia, No Other Genitourinary: No Dysuria, No Frequency, No Incontinence, No Hematuria, No Retention, No Other Musculoskeletal: No other, No neck pain, No shoulder pain, No arm pain, No back pain, No hand pain, No leg pain, No foot pain Skin: No Rash, No Lesions, No Jaundice, No Bruising, No Other Objective Vitals Vital Signs Date Time Temp Pulse Resp B/P (MAP) Pulse Ox O2 Delivery O2 Flow Rate FiO2 08/25/24 09:00 88 18 152/69 (96) 96 18 152/69 (96) 88 152/69 (96) 08/25/24 05:00 98.1 98.1 08/24/24 20:00 Room Air* 0 21 Intake/Output Intake and Output 08/25/24 07:00 Intake Total 760 ml Balance 760 ml Intake Oral 520 ml IV Total 240 ml # Voids 4 General Appearance: Alert, Oriented X3 HEENT: Atraumatic Cardiovascular: Regular rate, Normal S1, Normal S2 Neuro: Normal gait, Normal speech Medications Current Medications Medications Dose Ordered Sig/Payton Route Start Time Stop Time Status Last Admin Dose Admin Sodium Chloride 1,000 ml @ 60 mls/hr [id number] IV 08/23/24 21:45 08/25/24 06:01 60 MLS/HR Ondansetron HCl 4 mg Q4HP PRN IV 08/23/24 21:45 Docusate Sodium 100 mg BIDPRN PRN PO 08/23/24 21:45 Acetaminophen 650 mg Q6HP PRN PO 08/23/24 21:45 08/24/24 15:11 650 MG Morphine Sulfate 2 mg Q4HPRN PRN IV 08/23/24 21:45 Nitroglycerin 0.4 mg Q5MINP PRN SL 08/23/24 21:45 Morphine Sulfate 2 mg Q30M PRN IV 08/23/24 21:45 Pantoprazole Sodium 40 mg DAILY IV 08/24/24 10:00 08/24/24 10:46 40 MG Meclizine HCl 25 mg Q8HPRN PRN PO 08/23/24 22:15 Atorvastatin Calcium 40 mg HS PO 08/24/24 22:00 08/24/24 22:09 40 MG Levothyroxine Sodium 50 mcg QAM@0600 PO 08/24/24 06:00 08/25/24 06:01 50 MCG Ceftriaxone Sodium 50 ml @ 100 mls/hr DAILY@09 IV 08/24/24 09:00 08/25/24 09:30 100 MLS/HR Hydralazine HCl 10 mg Q6HP PRN IV 08/24/24 00:00 08/25/24 06:29 10 MG Nifedipine 30 mg DAILY PO 08/24/24 10:00 08/24/24 10:46 30 MG Laboratory Results Laboratory Tests 08/25/24 08:41 Chemistry Test 08/25/24 08:41 Albumin 3.8 g/dL (3.2-4.8) Calcium Level 10.1 mg/dL (8.7-10.4) Total Protein 6.9 g/dL (5.7-8.2) LFT Test 08/25/24 08:41 Alanine Aminotransferase (ALT) 18 U/L (7-40) Alkaline Phosphatase 187 U/L (46-116) H Aspartate Amino Transferase (AST) 49 U/L (<34) H Total Bilirubin 1.5 mg/dL (0.2-1.0) H Urinalysis Test 08/23/24 08:00 Urine Color Light-yellow (Yellow) Urine Clarity Clear (Clear) Urine pH 7.5 (5.0-9.0) Urine Specific [place] 1.011 (1.001-1.035) Urine Protein Negative (Negative) Urine Ketones Negative (Negative) Urine Blood Negative /uL (Negative) Urine Nitrite Negative (Negative) Urine Bilirubin Negative (Negative) Urine Urobilinogen Normal mg/dL (Negative) Urine Leukocyte Esterase 1+ /uL (Negative) Urine RBC 2 /hpf (0 - 4) Urine Microscopic WBC 4 /HPF (0-5) Urine Squamous Epithelial Cells Few /hpf (<5) Urine Bacteria None seen /hpf (None Seen) Urine Yeast (Budding) Occasional /hpf (None Urine Glucose Normal mg/dL (Normal) Microbiology Microbiology Date/Time Source Procedure Growth Status 08/23/24 16:47 Blood Blood Culture - Preliminary NO GROWTH AFTER 24 HOURS OF INCUBATION. Resulted 08/23/24 08:00 Voided Urine Urine Culture - Preliminary Resulted Labs and/or images reviewed: Labs reviewed by me, Image(s) reviewed by me Assessment/Plan Assessment/Plan #Recent fall at home x1 #Abdominal pain #Calcified pleural plaques, including corresponding to the finding on chest x- ray. #epigastric pain /chest pain rule out ACS #Fifth left rib fracture: #Essential hypertension #UTI #likely LAILA #possible underlying CKD stage IIIB #mild normocytic anemia #Likely pulmonary edema #possible community-acquired pneumonia: #Left pleural calcifications #Small bilateral pleural effusions #Known hypothyroidism, #dyslipidemia #intermittent vertigo #Worsening generalized weakness #GI prophylaxis Plan discussed with: Patient My Orders Orders - LAINE SHIN DO Procedure Category Date Status Time *Consult CONS 08/25/24 Transmitted / 10:41 Date of Service: Aug 24, 2024 Billing Provider: LAINE SHIN DO Common Visit Codes: [id number] INP/OBS CARE(HIGH) LAINE SHIN DO Aug 25, 2024 10:43
--- NOTE | 2024-08-25 14:02 | DVHINCON2 ---
Date of service: Aug 25, [address] askew Reason for Consultation pneumonia History of Present Illness HPI The patient is a 73-year-old female no history of smoking who presented with pain in the low abdomen and shortness of breast. She denies fever or chills or sick contacts. On admission her x-ray shows airspace opacities with a basis? Pneumonia. Patient admitted for further workup Home Meds Active Scripts Azithromycin (Azithromycin) 500 Mg Tab, 1 TAB PO DAILY for 6 Days, #6 TAB Prov:ALEXANDRO BUI DO 08/14/24 Azithromycin (Azithromycin) 250 Mg Tab, 250 MG PO DAILY MDD 500 for 5 Days, #6 T AB 0 Refills 2 TABLETS ORALLY ON DAY ONE, THEN 1 TABLET ORALLY DAILY FOR 4 DAYS Prov:JEANETTE LAMBERT 03/24/24 Promethazine-Dm (Promethazine Dm 6.25-15 mg/5Ml) 1 Elizabeth Elizabeth, 5 ML PO TID, #160 ML Prov:ZORAIDA GAMBLE 05/01/23 Levofloxacin Hemihydrate (LEVAQUIN 500 MG) 500 Mg Tab, 1 TAB PO DAILY, #10 TAB Prov:ZORAIDA GAMBLE 05/01/23 Reported Medications Nifedipine (Nifedipine Er) 30 Mg Tab, 1 TAB PO DAILY, #90 TAB 1 Refill 08/24/24 Levothyroxine Sodium (Levothyroxine Sodium) 50 Mcg Tab, 50 MCG PO QAM for 30 Days, MCG 08/24/24 Meclizine Hcl (Meclizine Hcl) 25 Mg Tab, 25 MG PO BIDP PRN for DIZZINESS for 30 Days, MG 08/24/24 Past Medical History Cardiac: No pertinent Hx Pulmonary: No pertinent Hx Central Nervous System: No pertinent Hx GI: No pertinent Hx Hemotology/Oncology: No pertinent Hx Hepatobiliary: No pertinent Hx Psychiatric: No pertinent Hx Musculoskeletal: No pertinent Hx Rheumotologic: No pertinent Hx Infectious Disease: No peritnent Hx ENT: No pertinent Hx Renal/: No pertinent Hx Endocrine: No pertinent Hx Dermatology: No pertinent Hx Past Surgical History: No pertinent Hx Patient Family History: Patient reports no known family medical history. Review of Systems Constitutional: Malaise Ears, Nose, & Throat: No symptom reported Eyes: No symptom reported Pulmonary/Respiratory: Dyspnea Cardiovascular: No symptom reported Gastrointestinal: Abdominal Pain Genitourinary: No symptom reported Musculoskeletal: No symptom reported Skin: No symptom reported Psychiatric: No symptom reported Endocrine: No symptom reported Hemotologic/Lymphatic: No symptom reported H&P Exam Vital Signs Vital Signs Date Time Temp Pulse Resp B/P (MAP) Pulse Ox O2 Delivery O2 Flow Rate FiO2 08/25/24 13:00 98.4 91 20 112/51 (71) 98 98.4 20 112/51 (71) 98 112/51 (71) 08/25/24 08:00 Room Air* 0 21 General Appeara: Well developed, Well nourished, Normal Appearance Head Exam: Normal inspection Neck Exam: Normal inspection, Non-tender, Normal alignment Eye Exam: bilateral eye Normal inspection, bilateral eye PERRL, bilateral eye EOMI Ear Exam: bilateral ear Auricle normal, bilateral ear Canal normal Nasal Exam: Normal inspection Mouth: Normal Inspection Pulmonary/Respiratory: Normal inspection, Normal breath sounds, Chest non- tender Cardiovascular/Chest: Normal inspection Peripheral Pulses: 4+ carotid (R), 4+ carotid (L) Abdominal Exam: Normal bowel sounds, Soft Labs/Xrays Labs Test 08/25/24 11:20 08/25/24 08:41 08/24/24 04:14 08/24/24 01:51 Range/Units Stool Occult Blood Negative Negative Stool Occult Blood Sample #3 Negative White Blood Count 5.1 4.4-10.8 10^3/uL Red Blood Count 3.96 L 4.0-5.20 10^6/uL Hemoglobin 12.6 12.2-16.2 g/dL Hematocrit 36.1 36.0-46.0 % Mean Corpuscular Volume 91.2 80.0-100.0 fL Mean Corpuscular Hemoglobin 31.9 28.0-32.0 pg Mean Corpuscular Hemoglobin Concent 35.0 32.0-36.0 g/dL Red Cell Distribution Width 16.5 H 11.8-14.3 % Platelet Count 166 140-450 10^3/uL Mean Platelet Volume 8.2 6.9-10.8 fL Neutrophils (%) (Auto) 47.2 37.0-80.0 % Lymphocytes (%) (Auto) 40.8 10.0-50.0 % Monocytes (%) (Auto) 8.5 0.0-12.0 % Eosinophils (%) (Auto) 2.1 0.0-7.0 % Basophils (%) (Auto) 1.4 0.0-2.0 % Neutrophils # (Auto) 2.4 1.6-8.6 10 ^3/uL Lymphocytes # (Auto) 2.1 0.4-5.4 10 ^3/uL Monocytes # (Auto) 0.4 0-1.3 10 ^3/uL Eosinophils # (Auto) 0.1 0-0.8 10 ^3/uL Basophils # (Auto) 0.1 0-0.2 10 ^3/uL Nucleated Red Blood Cells 0.1 % Sodium Level 144 136-145 mmol/L Potassium Level 3.6 3.5-5.1 mmol/L Chloride Level 110 H 98-107 mmol/L Carbon Dioxide Level 22 20-31 mmol/L Anion Gap 12 5-15 Blood Urea Nitrogen 11 9-23 mg/dL Creatinine 0.96 0.550-1.02 mg/dL Glomerular Filtration Rate Calc 63 >90 mL/min BUN/Creatinine Ratio 11.5 10.0-20.0 Serum Glucose 91 74-106 mg/dL Calcium Level 10.1 8.7-10.4 mg/dL Total Bilirubin 1.5 H 0.2-1.0 mg/dL Aspartate Amino Transferase (AST) 49 H <34 U/L Alanine Aminotransferase (ALT) 18 7-40 U/L Alkaline Phosphatase 187 H 46-116 U/L Total Protein 6.9 5.7-8.2 g/dL Albumin 3.8 3.2-4.8 g/dL Hemoglobin A1c 5.3 <5.7 % A1C Triglycerides Level 77 < 150 mg/dL Cholesterol Level 134 < 200 mg/dL LDL Cholesterol 85 < 100 mg/dL HDL Cholesterol 37 L 40-59 mg/dL Influenza Type A Antigen Negative Negative Influenza Type B Antigen Negative Negative SARS-CoV-2 Antigen (Rapid) Negative NEGATIVE Test 08/24/24 01:41 08/23/24 22:30 08/23/24 16:47 08/23/24 13:36 Range/Units Troponin I High Sensitivity 18 </=34 ng/L D-Dimer, Quantitative 1.19 H 0.0-0.49 mg/L FEU Direct Bilirubin 0.4 H <0.3 mg/dL Lipase 54 H 12-53 U/L Lactic Acid Level 1.4 0.4-2.0 mmol/L B-Type Natriuretic Peptide 260.51 0-100 pg/mL Vitamin B12 Level 581 211-911 pg/mL Vitamin D 25-Hydroxy 31.5 30.0-100 ng/mL Thyroid Stimulating Hormone (TSH) 4.11 0.55-4.78 uIU/mL Test 08/23/24 08:00 Range/Units Urine Color Light-yellow Yellow Urine Clarity Clear Clear Urine pH 7.5 5.0-9.0 Urine Specific [place] 1.011 1.001-1.035 Urine Protein Negative Negative Urine Ketones Negative Negative Urine Blood Negative Negative /uL Urine Nitrite Negative Negative Urine Bilirubin Negative Negative Urine Urobilinogen Normal Negative mg/dL Urine Leukocyte Esterase 1+ Negative /uL Urine RBC 2 0 - 4 /hpf Urine Microscopic WBC 4 0-5 /HPF Urine Squamous Epithelial Cells Few <5 /hpf Urine Bacteria None seen None Seen /hpf Urine Yeast (Budding) Occasional None Seen /hpf Urine Glucose Normal Normal mg/dL Microbiology Date/Time Source Procedure Growth Status 08/23/24 16:47 Blood Blood Culture - Preliminary NO GROWTH AFTER 24 HOURS OF INCUBATION. Resulted 08/23/24 08:00 Voided Urine Urine Culture - Preliminary Resulted Assessment/Plan Plan Pneumonia Atelectasis Abdominal pain Patient is seen and examined currently no distress On room air O2 sats 95% Labs and imaging studies reviewed Ultrasound venous Doppler negative Management plan Encourage incentive spirometry Broad-spectrum antibiotics Deescalate based on cultures Bronchodilators p.r.n. for wheezing GI and DVT prophylaxis Supportive care Disposition per primary Plan discussed with: Patient BLANCA FISHER MD Aug 25, 2024 14:02
--- NOTE | 2024-08-25 14:31 | DVHINCON2 ---
GI Consult Consult Note GI consult note Date of Consultation: 08/25/2024 Chief Complaint: EGD Referring Physician: Dr. Becker H&P: 73-year-old Slovak-speaking patient with past medical history of hypertension, pulmonary nodules and hypothyroidism presented to ER with generalized weakness, dizziness, shortness of breath and chest pain. Hospital staff is translating Patient also complains of epigastric and right upper quadrant abdominal pain, for one-week. Pain is burning in nature and worsens after eating. No nausea or vomiting. Denies hematemesis. Last BM today. No melena or red blood in stool. Patient denies alcohol use. No history of hepatitis in past Past Medical History: hypertension, pulmonary nodules, and hypothyroidism Past Surgical History: None Social History: NO smoking, drinking ETOH and use of illegal drugs. Family History: Noncontributory Review of Systems: Constitutional: no fever, chill, weight loss HEENT: no eye pain, no hearing loss, no oral lesion, no scleral icterus Heart: no chest pain, no chest pressure Lung: no cough, no dyspnea with exertion Abdomen: see HPI Physical exam: General: NAD, AAOX3 Chest: lung moyer clear to auscultation Heart: RRR, no murmur Abdomen: non-distended, + [id number] epigastric/right upper quadrant tenderness to palpation, +BS Labs:Labs Test 08/25/24 11:20 08/25/24 08:41 08/24/24 04:14 08/24/24 01:51 Range/Units Stool Occult Blood Negative Negative Stool Occult Blood Sample #3 Negative White Blood Count 5.1 4.4-10.8 10^3/uL Red Blood Count 3.96 L 4.0-5.20 10^6/uL Hemoglobin 12.6 12.2-16.2 g/dL Hematocrit 36.1 36.0-46.0 % Mean Corpuscular Volume 91.2 80.0-100.0 fL Mean Corpuscular Hemoglobin 31.9 28.0-32.0 pg Mean Corpuscular Hemoglobin Concent 35.0 32.0-36.0 g/dL Red Cell Distribution Width 16.5 H 11.8-14.3 % Platelet Count 166 140-450 10^3/uL Mean Platelet Volume 8.2 6.9-10.8 fL Neutrophils (%) (Auto) 47.2 37.0-80.0 % Lymphocytes (%) (Auto) 40.8 10.0-50.0 % Monocytes (%) (Auto) 8.5 0.0-12.0 % Eosinophils (%) (Auto) 2.1 0.0-7.0 % Basophils (%) (Auto) 1.4 0.0-2.0 % Neutrophils # (Auto) 2.4 1.6-8.6 10 ^3/uL Lymphocytes # (Auto) 2.1 0.4-5.4 10 ^3/uL Monocytes # (Auto) 0.4 0-1.3 10 ^3/uL Eosinophils # (Auto) 0.1 0-0.8 10 ^3/uL Basophils # (Auto) 0.1 0-0.2 10 ^3/uL Nucleated Red Blood Cells 0.1 % Sodium Level 144 136-145 mmol/L Potassium Level 3.6 3.5-5.1 mmol/L Chloride Level 110 H 98-107 mmol/L Carbon Dioxide Level 22 20-31 mmol/L Anion Gap 12 5-15 Blood Urea Nitrogen 11 9-23 mg/dL Creatinine 0.96 0.550-1.02 mg/dL Glomerular Filtration Rate Calc 63 >90 mL/min BUN/Creatinine Ratio 11.5 10.0-20.0 Serum Glucose 91 74-106 mg/dL Calcium Level 10.1 8.7-10.4 mg/dL Total Bilirubin 1.5 H 0.2-1.0 mg/dL Aspartate Amino Transferase (AST) 49 H <34 U/L Alanine Aminotransferase (ALT) 18 7-40 U/L Alkaline Phosphatase 187 H 46-116 U/L Total Protein 6.9 5.7-8.2 g/dL Albumin 3.8 3.2-4.8 g/dL Hemoglobin A1c 5.3 <5.7 % A1C Triglycerides Level 77 < 150 mg/dL Cholesterol Level 134 < 200 mg/dL LDL Cholesterol 85 < 100 mg/dL HDL Cholesterol 37 L 40-59 mg/dL Influenza Type A Antigen Negative Negative Influenza Type B Antigen Negative Negative SARS-CoV-2 Antigen (Rapid) Negative NEGATIVE Test 08/24/24 01:41 08/23/24 22:30 08/23/24 16:47 08/23/24 13:36 Range/Units Troponin I High Sensitivity 18 </=34 ng/L D-Dimer, Quantitative 1.19 H 0.0-0.49 mg/L FEU Direct Bilirubin 0.4 H <0.3 mg/dL Lipase 54 H 12-53 U/L Lactic Acid Level 1.4 0.4-2.0 mmol/L B-Type Natriuretic Peptide 260.51 0-100 pg/mL Vitamin B12 Level 581 211-911 pg/mL Vitamin D 25-Hydroxy 31.5 30.0-100 ng/mL Thyroid Stimulating Hormone (TSH) 4.11 0.55-4.78 uIU/mL Test 08/23/24 08:00 Range/Units Urine Color Light-yellow Yellow Urine Clarity Clear Clear Urine pH 7.5 5.0-9.0 Urine Specific [place] 1.011 1.001-1.035 Urine Protein Negative Negative Urine Ketones Negative Negative Urine Blood Negative Negative /uL Urine Nitrite Negative Negative Urine Bilirubin Negative Negative Urine Urobilinogen Normal Negative mg/dL Urine Leukocyte Esterase 1+ Negative /uL Urine RBC 2 0 - 4 /hpf Urine Microscopic WBC 4 0-5 /HPF Urine Squamous Epithelial Cells Few <5 /hpf Urine Bacteria None seen None Seen /hpf Urine Yeast (Budding) Occasional None Seen /hpf Urine Glucose Normal Normal mg/dL Imaging: Assessment: Abdominal pain Elevated LFTs Plan: Discussed with Dr. 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
--- NOTE | 2024-08-25 15:18 | DVH ---
INDICATION: RUQ abd pain. elevated T. bili TECHNIQUE: Multiple real-time sonographic images were obtained of the right upper quadrant. COMPARISON: None FINDINGS: The liver demonstrates coarsened echotexture without focal mass lesions. The liver measures 12 cm. There is no intrahepatic or extrahepatic ductal dilatation. The common duct measures 5 mm. The gallbladder is without evidence of stone or sludge. The gallbladder wall measures 3 mm and is wi thin normal limits. The right kidney measures 7.2 cm. The right kidney is normal in contour, size, and shape. The echoge nicity is normal. There is no hydronephrosis. Left kidney is also imaged for comparison which measure s 8.9 cm. Increased echogenicity of the bilateral kidneys suggestive of chronic medical renal disease . The pancreas is not well visualized due to overlying bowel gas. IMPRESSION: No sonographic evidence of gallstones or acute cholecystitis. Echogenic bilateral kidneys suggestive of chronic medical renal disease. Small bilateral kidneys. No hydronephrosis. Coarsened liver echotexture suggestive of chronic liver disease.
[2024-08-25 15:23] LABS: Hepatitis A Ab IgM Negative; Hepatitis B Core IgM Negative (Negative); Hepatitis B Surface Antigen Negative (Negative); Hepatitis C Antibody Negative (Negative)
[2024-08-25] MEDS: MECLIZINE HCL 25 MG TAB PO PRN (20:24)
[2024-08-26] VITALS (8 sets, daily range): BP systolic 115–161; BP diastolic 54–77; PULSE 67–77; RESP 16–18; TEMP 98–98.9; O2SAT 96–98
--- NOTE | 2024-08-26 22:47 | DVHPN2 ---
Progress Note - Dictate Date Seen: Aug 26, 2024 Medical Necessity Reason Pt with a Central, PICC or Fol: No Subjective Patient seen and examined at bedside. Breathing comfortably on room air. Overnight events reviewed. vital signs Vital Sign Date Time Temp Pulse Resp B/P (MAP) Pulse Ox O2 Delivery O2 Flow Rate FiO2 08/26/24 17:00 98.2 77 16 161/73 (102) 98 98.2 158/77 (104) 08/26/24 08:00 Room Air* 0 21 Total Intake and Output 08/25/24 08/25/24 08/26/24 15:00 23:00 07:00 Intake Total 50 ml 800 ml Balance 50 ml 800 ml medications Current Medications Medications Dose Ordered Sig/Payton Route Start Time Stop Time Status Last Admin Dose Admin Sodium Chloride 1,000 ml @ 60 mls/hr [id number] IV 08/23/24 21:45 08/25/24 06:01 60 MLS/HR Ondansetron HCl 4 mg Q4HP PRN IV 08/23/24 21:45 Docusate Sodium 100 mg BIDPRN PRN PO 08/23/24 21:45 Acetaminophen 650 mg Q6HP PRN PO 08/23/24 21:45 08/26/24 08:36 650 MG Morphine Sulfate 2 mg Q4HPRN PRN IV 08/23/24 21:45 Nitroglycerin 0.4 mg Q5MINP PRN SL 08/23/24 21:45 Morphine Sulfate 2 mg Q30M PRN IV 08/23/24 21:45 Pantoprazole Sodium 40 mg DAILY IV 08/24/24 10:00 08/26/24 08:35 40 MG Meclizine HCl 25 mg Q8HPRN PRN PO 08/23/24 22:15 08/25/24 20:24 25 MG Atorvastatin Calcium 40 mg HS PO 08/24/24 22:00 08/26/24 22:14 40 MG Levothyroxine Sodium 50 mcg QAM@0600 PO 08/24/24 06:00 08/26/24 05:57 50 MCG Ceftriaxone Sodium 50 ml @ 100 mls/hr DAILY@09 IV 08/24/24 09:00 08/26/24 08:35 100 MLS/HR Hydralazine HCl 10 mg Q6HP PRN IV 08/24/24 00:00 08/25/24 06:29 10 MG Nifedipine 30 mg DAILY PO 08/24/24 10:00 08/26/24 08:35 30 MG objective Gen.: Patient lying in bed in no apparent distress. Breathing on room air. Head: Normocephalic, atraumatic. Eyes: EOMI/PERRLA. Ears: Normal hearing. Normal anatomy. Neck/trachea: Trachea midline, supple. Nose: Normal external anatomy. Mouth: Moist mucous membranes. Chest: Decreased air entry bilaterally. Wheezing present. No rhonchi. Cardiovascular: Positive S1, positive S2. Regular rate and rhythm. Abdomen: Positive bowel sounds in all 4 quadrants. Soft, non-tender, non- distended. : Deferred. Rectal: Deferred. Skin: Warm, dry. Intact. Extremities: 2+ radial pulses bilaterally. No lower extremity edema. Neuro: Awake, alert, oriented x3. No gross motor or sensory deficits. Cranial nerves II through XII intact. Gait not assessed. laboratory and microbiology Laboratory Tests 08/25/24 08:41 Test 08/25/24 08:41 Range/Units Serum Glucose 91 74-106 mg/dL Assessment/Plan Impression: Pneumonia, likely GNR Atelectasis Wheezing Abdominal pain Events: Patient is seen and examined Currently in no distress On room air Supplemental oxygen PRN Continue bronchodilators Continue antibiotics Incentive spirometry for atelectasis Protonix for GI ppx Ultrasound venous Doppler negative Labs and imaging studies reviewed Rest of plan as noted below. Plan: Supplemental oxygen PRN Titrate to keep O2 sats above 92%. Encourage incentive spirometry Broad-spectrum antibiotics Deescalate based on cultures Bronchodilators p.r.n. for wheezing GI and DVT prophylaxis Supportive care Prognosis: Guarded given patient's multiple co-morbidities. Rest of plan per hospitalist and other consultants. Thank you, Dr. Scruggs, for allowing me to participate in this patient's care. Further recommendations will depend on the patient's clinical course. Please do not hesitate to contact me if you have any questions or concerns. This medical document was created using an electronic medical record system with [employer] system. Although these documentations are being carefully reviewed, there may still be some phonetic and typographical changes. The errors are purely typographical, due to imperfection on the software program, and do not reflect any compromise in the patient's medical care. Dietary Evaluation Review Comments: Monitor PO intake to meet 75% of her needs Follow up with labe values and consultation reports Expected Outcomes/Goals: maintain wt. avoid uremic symptoms Plan discussed with: Patient, Other (MARGAUX Traore) CASPER DELGADO MD Aug 26, 2024 22:47
[2024-08-27] VITALS (7 sets, daily range): BP systolic 114–129; BP diastolic 63–67; PULSE 63–80; RESP 17–18; TEMP 97.4–98.6; O2SAT 96–98
--- NOTE | 2024-08-27 00:24 | DVHSR ---
APPROVED REPORT EXAM: Two-dimensional and M-mode echocardiogram with Doppler and color Doppler. Blood Pressure: 129/52 mmHg INDICATION Rule out structural heart disease, check LVEF RISK FACTORS Height: 62, Weight: 129 DIMENSIONS LVDd (3.8-5.7cm)LA (2D)3.9 (1.9-4.0cm)Aortic Root2.7 (2.0-3.7cm) LVDs (2.5-4.0cm)LA (MM) (1.9-4.0cm)Aortic Cusp Exc1.3 (1.5-2.0cm) EF (%) 60.0 (55-70%)Rt. Atrium4.2 (1.9-4.0cm)Asc. Aorta cm Mitral Valve MitralMitral Stenosis E wave0.84m/sMV Mean GR.mmHg A wave0.99m/sMV Peak GR.97mmHg E/A ratio0.82D MVAcm2 DECEL [id number] 1/2 [id number] IVRTmsDop MVA2.13cm2 Aortic Valve Aortic ValveAortic Stenosis V11.18m/Tabatha Mean GR.7mmHg V21.91m/Tabatha Peak GR.15mmHg LVOT Diameter1.7 (1.8-2.4cm)Doppler AVA1.40cm2 Pulmonic Valve V21.04m/s Tricuspid Valve TR Velocity2.61m/s [id number] Conclusion LV EF IS 65% AND IS NORMAL NORMAL RV FUNCTION CALCIFIED AORTIC LEAFLETS NORMAL MV,TV AND PV NO EFFUSION
--- NOTE | 2024-08-27 15:28 | DVHPN2 ---
Reviewed: Care Plan, H&P, Labs Changes from previous H/P or p: No Changes General: Per HPI Eyes: No Pain, No Vision change, No Conjunctivae inflammation, No Eyelid inflammation, No Other, No Redness ENT: No Ear pain, No Ear discharge, No Nose pain, No Nose discharge, No Nose congestion, No Mouth pain, No Mouth swelling, No Throat pain, No Throat swelling, No Other Cardiovascular: Chest Pain; No Palpitations, No Orthopnea, No Paroxysmal Noc. Dyspnea, No Edema, No Lt Headedness, No Other Respiratory: No Cough, No Dry, No Shortness of breath, No SOB with excertion, No Wheezing, No Hemoptysis, No Pleuritic Pain, No Sputum, No Other Gastrointestinal: Nausea; No Vomiting; Abdominal Pain; No Diarrhea, No Constipation, No Melena, No Hematochezia, No Other Genitourinary: No Dysuria, No Frequency, No Incontinence, No Hematuria, No Retention, No Other Musculoskeletal: No other, No neck pain, No shoulder pain, No arm pain, No back pain, No hand pain, No leg pain, No foot pain Skin: No Rash, No Lesions, No Jaundice, No Bruising, No Other Objective Vitals Vital Signs Date Time Temp Pulse Resp B/P (MAP) Pulse Ox O2 Delivery O2 Flow Rate FiO2 08/27/24 13:00 97.9 76 17 129/67 (87) 98 97.9 08/27/24 08:00 Room Air* 0 21 Intake/Output Intake and Output 08/27/24 07:00 Intake Total 2300 ml Balance 2300 ml Intake Oral 2250 ml IV Total 50 ml # Voids 3 # Bowel Movements 1 Medications Current Medications Medications Dose Ordered Sig/[place] Route Start Time Stop Time Status Last Admin Dose Admin Sodium Chloride 1,000 ml @ 60 mls/hr [id number] IV 08/23/24 21:45 08/25/24 06:01 60 MLS/HR Ondansetron HCl 4 mg Q4HP PRN IV 08/23/24 21:45 Docusate Sodium 100 mg BIDPRN PRN PO 08/23/24 21:45 Acetaminophen 650 mg Q6HP PRN PO 08/23/24 21:45 08/27/24 09:43 650 MG Morphine Sulfate 2 mg Q4HPRN PRN IV 08/23/24 21:45 Nitroglycerin 0.4 mg Q5MINP PRN SL 08/23/24 21:45 Morphine Sulfate 2 mg Q30M PRN IV 08/23/24 21:45 Pantoprazole Sodium 40 mg DAILY IV 08/24/24 10:00 08/27/24 09:43 40 MG Meclizine HCl 25 mg Q8HPRN PRN PO 08/23/24 22:15 08/25/24 20:24 25 MG Atorvastatin Calcium 40 mg HS PO 08/24/24 22:00 08/26/24 22:14 40 MG Levothyroxine Sodium 50 mcg QAM@0600 PO 08/24/24 06:00 08/27/24 06:03 50 MCG Ceftriaxone Sodium 50 ml @ 100 mls/hr DAILY@09 IV 08/24/24 09:00 08/27/24 09:43 100 MLS/HR Hydralazine HCl 10 mg Q6HP PRN IV 08/24/24 00:00 08/25/24 06:29 10 MG Nifedipine 30 mg DAILY PO 08/24/24 10:00 08/27/24 09:43 30 MG Laboratory Results Laboratory Tests 08/25/24 08:41 Urinalysis Test 08/23/24 08:00 Urine Color Light-yellow (Yellow) Urine Clarity Clear (Clear) Urine pH 7.5 (5.0-9.0) Urine Specific [place] 1.011 (1.001-1.035) Urine Protein Negative (Negative) Urine Ketones Negative (Negative) Urine Blood Negative /uL (Negative) Urine Nitrite Negative (Negative) Urine Bilirubin Negative (Negative) Urine Urobilinogen Normal mg/dL (Negative) Urine Leukocyte Esterase 1+ /uL (Negative) Urine RBC 2 /hpf (0 - 4) Urine Microscopic WBC 4 /HPF (0-5) Urine Squamous Epithelial Cells Few /hpf (<5) Urine Bacteria None seen /hpf (None Seen) Urine Yeast (Budding) Occasional /hpf (None Urine Glucose Normal mg/dL (Normal) Microbiology Microbiology Date/Time Source Procedure Growth Status 08/25/24 08:15 Sputum Gram Stain - Final Resulted 08/25/24 08:15 Sputum Respiratory Culture - Preliminary Resulted 08/23/24 16:47 Blood Blood Culture - Preliminary NO GROWTH AFTER 72 HOURS OF INCUBATION. Resulted 08/23/24 08:00 Voided Urine Urine Culture - Final Enterococcus faecalis Complete Labs and/or images reviewed: Labs reviewed by me, Image(s) reviewed by me Assessment/Plan Assessment/Plan #Recent fall at home x1: #Abdominal pain: 11/08 radiating to upper chest: Workup to complete with abdominal /pelvis CT with lactate and lipase. Check full hepatic panel. Serial abdominal examination to be done. #Calcified pleural plaques, including corresponding to the finding on chest x- ray. This is compatible with asbestosis exposure noted in CT chest 05/01/2023 Further follow up needed for possible changes/ high-risk of lung cancer. #epigastric pain /chest pain rule out ACS: Serial troponin, EKG, echo to check BNP, we will admit the patient to the telemetry floor for close monitoring. Presumably hemodynamically stable. Atrial premature complex, Abnormal R-wave progression, early transition, Nonspecific repolarization abnormality, diffuse leads, Borderline ST elevation, lateral leads (noted in and EKG almost 10 hours ago)- We will do extensive workup and bedside echo. #Fifth left rib fracture: Noted in the chest x-ray, incentive spirometry, pain control, calcium and vitamin-D supplements. Avoid atelectasis. #Essential hypertension, not well controlled. during this hospital stay blood pressure went to 173/64. Home medications reveal nifedipine 30 mg ER, metoprolol succinate 25 mg #UTI: Leukocyte esterase positive, lactate negative, Hemodynamically stable, afebrile, breathing in comfortably in the room air. status post fluid IV, 1 L bolus NS, 150 cc/hour, #likely LAILA: Creatinine 1.17: Baseline not known avoid, gentle hydration, avoid nephrotoxic meds. #possible underlying CKD stage IIIB : serial monitoring to do. #mild normocytic anemia: Hemoglobin 13.0, RDW 16.2, rule out early GI blood loss, stool occult blood to check Outpatient close follow up with PCP and age- appropriate colonoscopy to follow up. #Likely pulmonary edema: No hypoxia, The lungs demonstrate bilateral patchy airspace opacities. The pulmonary vasculature is prominent. #possible community-acquired pneumonia: Blood culture sputum culture will be sent, check for viral panel, status post IV azithromycin ceftriaxone At ER. #Left pleural calcifications: need outpatient close follow up at least yearly Chest CT scan. #Small bilateral pleural effusions: Check echo, BNP, #Known hypothyroidism, patient on levothyroxine sodium 50 mcg daily we will continue, check TSH. #dyslipidemia : On statin atorvastatin 40 mg daily #intermittent vertigo #Worsening generalized weakness: Baseline poor functional status: Patient on wheelchair, accompanied by the daughter, PT evaluation tomorrow. unintentional weight loss, deconditioning, poor nutrition, age-related versus secondary extensive weakness workup pending. #GI prophylaxis: IV ppi to continue Plan discussed with: Patient Date of Service: Aug 26, 2024 Billing Provider: LAINE SHIN DO Common Visit Codes: [id number] INP/OBS CARE(HIGH) LAINE SHIN DO Aug 27, 2024 15:28
--- NOTE | 2024-08-27 15:33 | DVHDS2 ---
Discharge Summary Date of Admission Aug 23, 2024 at 21:39 Date of Discharge: Aug 27, 2024 Labs/Diagnostic Data: Laboratory Results Test 08/25/24 11:20 08/25/24 08:41 08/24/24 04:14 08/24/24 01:51 Stool Occult Blood Negative (Negative) Stool Occult Blood Sample #3 (Negative) White Blood Count 5.1 10^3/uL (4.4-10.8) Red Blood Count 3.96 10^6/uL (4.0-5.20) Hemoglobin 12.6 g/dL (12.2-16.2) Hematocrit 36.1 % (36.0-46.0) Mean Corpuscular Volume 91.2 fL (80.0-100.0) Mean Corpuscular Hemoglobin 31.9 pg (28.0-32.0) Mean Corpuscular Hemoglobin Concent 35.0 g/dL (32.0-36.0) Red Cell Distribution Width 16.5 % (11.8-14.3) Platelet Count 166 10^3/uL (140-450) Mean Platelet Volume 8.2 fL (6.9-10.8) Neutrophils (%) (Auto) 47.2 % (37.0-80.0) Lymphocytes (%) (Auto) 40.8 % (10.0-50.0) Monocytes (%) (Auto) 8.5 % (0.0-12.0) Eosinophils (%) (Auto) 2.1 % (0.0-7.0) Basophils (%) (Auto) 1.4 % (0.0-2.0) Neutrophils # (Auto) 2.4 10 ^3/uL (1.6-8.6) Lymphocytes # (Auto) 2.1 10 ^3/uL (0.4-5.4) Monocytes # (Auto) 0.4 10 ^3/uL (0-1.3) Eosinophils # (Auto) 0.1 10 ^3/uL (0-0.8) Basophils # (Auto) 0.1 10 ^3/uL (0-0.2) Nucleated Red Blood Cells 0.1 % Sodium Level 144 mmol/L (136-145) Potassium Level 3.6 mmol/L (3.5-5.1) Chloride Level 110 mmol/L (98-107) Carbon Dioxide Level 22 mmol/L (20-31) Anion Gap 12 (5-15) Blood Urea Nitrogen 11 mg/dL (9-23) Creatinine 0.96 mg/dL (0.550-1.02) Glomerular Filtration Rate Calc 63 mL/min (>90) BUN/Creatinine Ratio 11.5 (10.0-20.0) Serum Glucose 91 mg/dL (74-106) Calcium Level 10.1 mg/dL (8.7-10.4) Total Bilirubin 1.5 mg/dL (0.2-1.0) Aspartate Amino Transferase (AST) 49 U/L (<34) Alanine Aminotransferase (ALT) 18 U/L (7-40) Alkaline Phosphatase 187 U/L (46-116) Total Protein 6.9 g/dL (5.7-8.2) Albumin 3.8 g/dL (3.2-4.8) Hepatitis A IgM Antibody Negative Hepatitis B Surface Antigen Negative (Negative) Hepatitis B Core IgM Antibody Negative (Negative) Hepatitis C Antibody Negative (Negative) Hemoglobin A1c 5.3 % A1C (<5.7) Triglycerides Level 77 mg/dL (< 150) Cholesterol Level 134 mg/dL (< 200) LDL Cholesterol 85 mg/dL (< 100) HDL Cholesterol 37 mg/dL (40-59) Influenza Type A Antigen Negative (Negative) Influenza Type B Antigen Negative (Negative) SARS-CoV-2 Antigen (Rapid) Negative (NEGATIVE) Test 08/24/24 01:41 08/23/24 22:30 08/23/24 16:47 08/23/24 13:36 Troponin I High Sensitivity 18 ng/L (</=34) D-Dimer, Quantitative 1.19 mg/L FEU (0.0-0.49) Direct Bilirubin 0.4 mg/dL (<0.3) Lipase 54 U/L (12-53) Lactic Acid Level 1.4 mmol/L (0.4-2.0) B-Type Natriuretic Peptide 260.51 pg/mL (0-100) Vitamin B12 Level 581 pg/mL (211-911) Vitamin D 25-Hydroxy 31.5 ng/mL (30.0-100) Thyroid Stimulating Hormone (TSH) 4.11 uIU/mL (0.55-4.78) Test 08/23/24 08:00 Urine Color Light-yellow (Yellow) Urine Clarity Clear (Clear) Urine pH 7.5 (5.0-9.0) Urine Specific [place] 1.011 (1.001-1.035) Urine Protein Negative (Negative) Urine Ketones Negative (Negative) Urine Blood Negative /uL (Negative) Urine Nitrite Negative (Negative) Urine Bilirubin Negative (Negative) Urine Urobilinogen Normal mg/dL (Negative) Urine Leukocyte Esterase 1+ /uL (Negative) Urine RBC 2 /hpf (0 - 4) Urine Microscopic WBC 4 /HPF (0-5) Urine Squamous Epithelial Cells Few /hpf (<5) Urine Bacteria None seen /hpf (None Seen) Urine Yeast (Budding) Occasional /hpf (None Urine Glucose Normal mg/dL (Normal) Other Laboratory Tests 08/25/24 08:41 Brief Hx & Hospital Course: #Recent fall at home x1 #Abdominal pain #Calcified pleural plaques, including corresponding to the finding on chest x- ray. #epigastric pain /chest pain rule out ACS #Fifth left rib fracture: #Essential hypertension #UTI #likely LAILA #possible underlying CKD stage IIIB #mild normocytic anemia #Likely pulmonary edema #possible community-acquired pneumonia: #Left pleural calcifications #Small bilateral pleural effusions #Known hypothyroidism, #dyslipidemia #intermittent vertigo #Worsening generalized weakness #GI prophylaxis Condition at Discharge: Fair Final Diagnosis/Problems List see above Discharge Disposition: Home Discharge Instruct/Medications Diet: Cardiac 2g Na,low cholest Activity: No Restrictions, As Tolerated Discharge Statement: "Patient was advised to return to the ER or call 911 if any headaches, dizziness, shortness of breath, chest pain, abdominal pain, bleeding, fevers, or worsening of medical condition. Patient was counseled about treatment plan, medications, possible side effects, patientverbalized understanding. All questions were answered to the best of my ability. This discharge took greater then 30 minutes in planning, reviewing documentation, counseling the patient, and discussing with other team members." ASSESSMENT ASSESSMENT Assessment Date of Service: Aug 27, 2024 Billing Provider: LAINE SHIN DO Common Visit Codes: [id number] DISCH DAY >30min LAINE SHIN DO Aug 27, 2024 15:33
--- NOTE | 2024-08-27 23:21 | DVHPN2 ---
Progress Note - Dictate Date Seen: Aug 27, 2024 Medical Necessity Reason Pt with a Central, PICC or Fol: No Subjective Patient seen and examined at bedside. Breathing comfortably on room air. Overnight events reviewed. vital signs Vital Sign Date Time Temp Pulse Resp B/P (MAP) Pulse Ox O2 Delivery O2 Flow Rate FiO2 08/27/24 16:53 97.4 64 17 123/67 (85) 97 97.4 08/27/24 08:00 Room Air* 0 21 Total Intake and Output 08/26/24 08/26/24 08/27/24 15:00 23:00 07:00 Intake Total 50 ml 1250 ml 1000 ml Balance 50 ml 1250 ml 1000 ml objective Gen.: Patient lying in bed in no apparent distress. Breathing on room air. Head: Normocephalic, atraumatic. Eyes: EOMI/PERRLA. Ears: Normal hearing. Normal anatomy. Neck/trachea: Trachea midline, supple. Nose: Normal external anatomy. Mouth: Moist mucous membranes. Chest: Decreased air entry bilaterally. Wheezing present. No rhonchi. Cardiovascular: Positive S1, positive S2. Regular rate and rhythm. Abdomen: Positive bowel sounds in all 4 quadrants. Soft, non-tender, non- distended. : Deferred. Rectal: Deferred. Skin: Warm, dry. Intact. Extremities: 2+ radial pulses bilaterally. No lower extremity edema. Neuro: Awake, alert, oriented x3. No gross motor or sensory deficits. Cranial nerves II through XII intact. Gait not assessed. laboratory and microbiology Laboratory Tests 08/25/24 08:41 Test 08/25/24 08:41 Range/Units Serum Glucose 91 74-106 mg/dL Assessment/Plan Impression: Pneumonia, likely GNR Atelectasis Wheezing Abdominal pain Events: Remains on room air. No distress Supplemental oxygen PRN Continue bronchodilators Continue antibiotics Incentive spirometry for atelectasis Protonix for GI ppx Follow up Echocardiogram Follow up Cardiology recommendations Ultrasound venous Doppler negative Labs and imaging studies reviewed Rest of plan as noted below. Plan: Supplemental oxygen PRN Titrate to keep O2 sats above 92%. Encourage incentive spirometry Broad-spectrum antibiotics Deescalate based on cultures Bronchodilators p.r.n. for wheezing GI and DVT prophylaxis Supportive care Prognosis: Guarded given patient's multiple co-morbidities. Rest of plan per hospitalist and other consultants. Thank you, Dr. Scruggs, for allowing me to participate in this patient's care. Further recommendations will depend on the patient's clinical course. Please do not hesitate to contact me if you have any questions or concerns. This medical document was created using an electronic medical record system with [employer] dictation system. Although these documentations are being carefully reviewed, there may still be some phonetic and typographical changes. The errors are purely typographical, due to imperfection on the software program, and do not reflect any compromise in the patient's medical care. Dietary Evaluation Review Comments: Monitor PO intake to meet 75% of her needs Follow up with labe values and consultation reports Expected Outcomes/Goals: maintain wt. avoid uremic symptoms Plan discussed with: Patient, Other (RN Riddhi) CASPER DELGADO MD Aug 27, 2024 23:21
--- NOTE | 2024-08-27 23:53 | DVHPN2 ---
Progress Note - Dictate Date Seen: Aug 27, 2024 (Late entryPatient seen at 3:00 p.m.) Medical Necessity Reason Pt with a Central, PICC or Fol: No Subjective No new complaints Patient has epigastric pain is improved and she is tolerating a diet Abdominal ultrasound did not show any gallstones Her hepatitis panel is negative vital signs Vital Sign Date Time Temp Pulse Resp B/P (MAP) Pulse Ox O2 Delivery O2 Flow Rate FiO2 08/27/24 16:53 97.4 64 17 123/67 (85) 97 97.4 08/27/24 08:00 Room Air* 0 21 Total Intake and Output 08/26/24 08/26/24 08/27/24 15:00 23:00 07:00 Intake Total 50 ml 1250 ml 1000 ml Balance 50 ml 1250 ml 1000 ml objective General: NAD, AAOX3 Chest: lung moyer clear to auscultation Heart: RRR, no murmur Abdomen: non-distended, + [id number] epigastric/right upper quadrant tenderness to palpation, +BS laboratory and microbiology Laboratory Tests 08/25/24 08:41 Test 08/25/24 08:41 Range/Units Serum Glucose 91 74-106 mg/dL Liver USG IMPRESSION: No sonographic evidence of gallstones or acute cholecystitis. Echogenic bilateral kidneys suggestive of chronic medical renal disease. Small bilateral kidneys. No hydronephrosis. Coarsened liver echotexture suggestive of chronic liver disease. Problems(with codes): (1) Elevated liver enzymes (2) Epigastric pain (3) Autonomic disorder Prognosis Plan Discharge planning is in progress Protonix 40 mg p.o. daily Outpatient follow up with me in 2-4 weeks to discuss outpatient elective panendoscopy Once again thank you for allowing me to participate in the care of this patient Dietary Evaluation Review Comments: Monitor PO intake to meet 75% of her needs Follow up with labe values and consultation reports Expected Outcomes/Goals: maintain wt. avoid uremic symptoms Plan discussed with: Patient SHABNAM MENJIVAR MD Aug 27, 2024 23:53
== END 2024-08-27 17:50 | disposition home or self-care (01) | DRG 463 ==
LOC: ER 12:38 → OVERFLOW 21:39 → TELE-CENTR 08-24 13:55
PROVIDERS: ADMIT Internal Medicine; ATTEND Internal Medicine
DX: N30.00 Acute cystitis without hematuria (principal); J15.69 Pneumonia due to other Gram-negative bacteria; N17.9 Acute kidney failure, unspecified; J90 Pleural effusion, not elsewhere classified; J15.9 Unspecified bacterial pneumonia; I95.9 Hypotension, unspecified; E86.0 Dehydration; D64.9 Anemia, unspecified; E03.9 Hypothyroidism, unspecified; I10 Essential (primary) hypertension; Z77.090 Contact with and (suspected) exposure to asbestos; Z20.822 Contact with and (suspected) exposure to COVID-19; E78.5 Hyperlipidemia, unspecified; J98.11 Atelectasis; R74.8 Abnormal levels of other serum enzymes; I49.1 Atrial premature depolarization; R79.89 Other specified abnormal findings of blood chemistry; Z79.899 Other long term (current) drug therapy; Z79.890 Hormone replacement therapy; I12.9 Hypertensive chronic kidney disease with stage 1 through stage 4 chronic kidney disease, or unspecified chronic kidney disease; N18.32 Chronic kidney disease, stage 3b
CPT/HCPCS: 36415; 70450; 71045; 76705; 80048; 80053; 80061; 80074; 80076; 81001; 82270; 82306; 82607; 83036; 83605; 83690; 83880; 84443; 84484; 85025; 85379; 87040; 87070; 87077; 87086; 87088; 87186; 87205; 87426; 87804; 93005; 93306; 93886; 93970; 96365; 97110; 97116; 97163; 97530; 99291; G0378; J2470